=== PATIENT | male | born 1980 | race Caucasian/White ===

== ENCOUNTER 2017-05-15 10:14 | Emergency (ER) | payer OTHER ==
[2017-05-15] MEDS ORDERED: Sodium Chloride 0.9% 1000 ML 1,000 ML IV STA (10:41)
[2017-05-15] MEDS ORDERED: Phenergan 25 MG INJ IV ONE (10:41)
[2017-05-15] MEDS ORDERED: Hydromorphone 1 mg/ml Ampule IV ONE (10:41)
--- NOTE | 2017-05-15 10:41 | ERPHSYRPT ---
- History of Present Illness Time Seen by Provider: 05/15/17 10:37 Historian: patient Exam Limitations: no limitations Patient Subjective Stated Complaint: PT REPORTS CECELIA 3 HRS AGO HE BEGAN HAVING BILATERAL LOW BACK PAIN RADIAITNG AROUND BOTH FLANKS-STATES HE HAS A HX OF KIDNEY STONES ET IT FEELS LIKE THAT-STATES HE IS URINATING BLOOD BUT THAT IS NORMAL FOR HIM-DENIES FEVER Triage Nursing Assessment: PT PINK WARM ET [id number] NONLABORED-ABD NONTENDER TO PALP Physician History: The patient is a 37-year-old male with a history of kidney stones complaining of bilateral flank pain with radiation around to the abdomen that began about 3 hours ago. Pain on his right side is worse than on the left. He says this is similar to the past episodes of kidney stones. He has polycystic kidney disease as well. He still has his appendix and gallbladder. Timing/Duration: hour(s) (3) Activities at Onset: none Quality: sharpness Abdominal Pain Onset Location: flank Pain Radiation: groin Severity of Pain-Max: severe Severity of Pain-Current: severe Modifying Factors: Improves With: nothing Associated Symptoms: denies symptoms Previous symptoms: same symptoms as today Allergies/Adverse Reactions: Penicillins Allergy (Severe, Verified 05/15/17 10:23) Rash diphenhydramine HCl [From Benadryl] Allergy (Verified 05/15/17 10:23) ketorolac tromethamine [From Toradol] Allergy (Verified 05/15/17 10:23) Home Medications: No Home Meds 1 ea UD 05/15/17 [History] Hx Tetanus, Diphtheria Vaccination/Date Given: Yes Hx Influenza Vaccination/Date Given: Yes Hx Pneumococcal Vaccination/Date Given: No Immunizations Up to Date: Yes - Review of Systems Constitutional: No Fever, No Chills Eyes: No Symptoms Ears, Nose, & Throat: No Symptoms Respiratory: No Cough, No Dyspnea Cardiac: No Chest Pain, No Edema, No Syncope Abdominal/Gastrointestinal: Abdominal Pain Genitourinary Symptoms: Flank Pain Musculoskeletal: No Back Pain, No Neck Pain Skin: No Rash Neurological: No Dizziness, No Focal Weakness, No Sensory Changes Psychological: No Symptoms Endocrine: No Symptoms Hematologic/Lymphatic: No Symptoms Immunological/Allergic: No Symptoms All Other Systems: Reviewed and Negative - Past Medical History Pertinent Past Medical History: Yes Neurological History: No Pertinent History ENT History: No Pertinent History Cardiac History: No Pertinent History Respiratory History: No Pertinent History Endocrine Medical History: No Pertinent History Musculoskeletal History: No Pertinent History GI Medical History: No Pertinent History, Other History: Other Psycho-Social History: No Pertinent History Male Reproductive Disorders: No Pertinent History Other Medical History: pckd - Past Surgical History Past Surgical History: No Neuro Surgical History: No Pertinent History Cardiac: No Pertinent History Respiratory: No Pertinent History Gastrointestinal: No Pertinent History Genitourinary: No Pertinent History Musculoskeletal: No Pertinent History Male Surgical History: No Pertinent History - Social History Smoking Status: Current every day smoker How long have you smoked: 16 Exposure to second hand smoke: No Drug Use: none Patient Lives Alone: No Significant Family History: no pertinent family hx - Nursing Vital Signs Nursing Vital Signs: Initial Vital Signs Temperature 97.9 F Temperature Source Oral Pulse Rate 90 Respiratory Rate 16 Blood Pressure [] 143/89 Pain Intensity 6 - Physical Exam General Appearance: moderate distress Eye Exam: PERRL/EOMI, eyes nml inspection Ears, Nose, Throat Exam: normal ENT inspection, pharynx normal, moist mucous membranes Neck Exam: normal inspection, non-tender, supple, full range of motion Respiratory Exam: normal breath sounds, lungs clear, No respiratory distress Cardiovascular Exam: regular rate/rhythm, normal heart sounds Gastrointestinal/Abdomen Exam: tenderness Rectal Exam: not done Back Exam: CVA tenderness Extremity Exam: normal inspection, normal range of motion, pelvis stable Neurologic Exam: alert, oriented x 3, cooperative, normal mood/affect, nml cerebellar function, sensation nml, No motor deficits Skin Exam: normal color, warm, dry SpO2 Interpretation: normal SpO2: 97 Oxygen Delivery: Room Air - CT Exams Abdomen/Pelvis CT Interpretation: Tele-radiologist Report (again bilateral polycystic kidney disease, no renal calculus or evidence for obstructive uropathy. No new or acute abnormalities. Per Dr Zarate.) Ordered Tests: Active Orders 24 hr Category Date Time Status IV Insertion STAT Care 05/15/17 10:41 Active ABDOMEN AND PELVIS W/0 CONTRAS [CT] Stat Exams 05/15/17 10:41 Completed CBC W DIFF Stat Lab 05/15/17 10:54 Completed CMP Stat Lab 05/15/17 10:54 Completed LIPASE Stat Lab 05/15/17 10:54 Completed Lactic Acid Stat Lab 05/15/17 10:55 Completed UA W/RFX UR CULTURE Stat Lab 05/15/17 11:15 Completed Urine Triage Profile Stat Lab 05/15/17 10:41 Completed Medication Summary Discontinued Medications Generic Name Dose Route Start Last Admin Trade Name Teagan PRDiaz Reason Stop Dose Admin Hydromorphone HCl 2 mg 05/15/17 10:41 05/15/17 11:12 Hydromorphone 1 Mg/Ml Ampule IV 05/15/17 10:42 2 mg STAT ONE Administration Hydromorphone HCl Confirm 05/15/17 11:04 Hydromorphone 1 Mg/Ml Ampule Administered 05/15/17 11:05 Dose 2 mg .ROUTE .STK-MED ONE Sodium Chloride 1,000 mls @ 999 mls/hr 05/15/17 10:41 05/15/17 11:11 Sodium Chloride 0.9% 1000 Ml IV 05/15/17 11:41 999 mls/hr .Q1H1M STA Administration Sodium Chloride Confirm 05/15/17 11:04 Sodium Chloride 0.9% 1000 Ml Administered 05/15/17 11:05 Dose 1,000 mls @ ud .ROUTE .STK-MED ONE Promethazine HCl 25 mg 05/15/17 10:41 05/15/17 11:12 Phenergan 25 Mg Inj IV 05/15/17 10:42 25 mg STAT ONE Administration Promethazine HCl Confirm 05/15/17 11:04 Phenergan 25 Mg Inj Administered 05/15/17 11:05 Dose 25 mg .ROUTE .STK-MED ONE Tamsulosin HCl 0.4 mg 05/15/17 10:42 05/15/17 11:12 Flomax 0.4 Mg PO 05/15/17 10:43 0.4 mg HS STA Administration Tamsulosin HCl Confirm 05/15/17 11:04 Flomax 0.4 Mg Administered 05/15/17 11:05 Dose 0.4 mg .ROUTE .STK-MED ONE Lab/Rad Data: Laboratory Result Diagrams 05/15/17 10:54 05/15/17 10:54 Laboratory Results 05/15/17 05/15/17 05/15/17 Range/Units 11:15 10:55 10:54 WBC (4.0-10.5) K/mm3 RBC (4.1-5.6) M/mm3 Hgb (12.5-18.0) gm/dl Hct (42-50) % MCV (78-100) fl MCH (26-32) pg MCHC (32-36) g/dl RDW (11.5-14.0) % Plt Count (150-450) K/mm3 MPV (6-9.5) fl Gran % (36.0-66.0) % Lymphocytes % (24.0-44.0) % Monocytes % (0.0-12.0) % Eosinophils % (0.00-5.0) % Basophils % (0.0-0.4) % Basophils # (0-0.4) Sodium 141 (136-145) mEq/L Potassium 3.9 (3.5-5.1) mEq/L Chloride 106 (98-107) mEq/L Carbon Dioxide 23.7 (21-32) mEq/L Anion Gap 15.0 (5-15) MEQ/L BUN 17 (9-20) mg/dL Creatinine 1.35 H (0.55-1.30) mg/dl Estimated GFR > 60 ML/MIN Glucose 96 (70-110) MG/DL Lactic Acid 0.7 (0.4-2.0) Calcium 9.4 (8.5-10.1) mg/dL Total Bilirubin 0.60 (0.2-1.0) mg/dL AST 31 (15-37) U/L ALT 33 (12-78) U/L Alkaline Phosphatase 52 (46-116) U/L Serum Total Protein 7.7 (6.4-8.2) gm/dL Albumin 4.3 (3.4-5.0) g/dL Lipase 203 (73-393) U/L Ur Collection Type VOID Urine Color YELLOW (YELLOW) Urine Appearance CLEAR (CLEAR) Urine pH 5.0 (5-6) Ur Specific [place] 1.010 (1.005-1.025) Urine Protein NEGATIVE (Negative) Urine Ketones NEGATIVE (NEGATIVE) Urine Blood NEGATIVE (0-5) Varun/ul Urine Nitrite NEGATIVE (NEGATIVE) Urine Bilirubin NEGATIVE (NEGATIVE) Urine Urobilinogen NORMAL (0-1) mg/dL Ur Leukocyte Esterase NEGATIVE (NEGATIVE) Urine Glucose NEGATIVE (NEGATIVE) mg/dL Urine Opiates Level (NEGATIVE) Ur Methadone (NEGATIVE) Urine Barbiturates (NEGATIVE) Ur Phencyclidine (PCP) (NEGATIVE) Urine Amphetamine (NEGATIVE) U Benzodiazepine Level (NEGATIVE) Urine Cocaine (NEGATIVE) Urine Marijuana (THC) (NEGATIVE) Specimen Received 05/15/17 115 05/15/17 05/15/17 Range/Units 10:54 10:41 WBC 6.6 (4.0-10.5) K/mm3 RBC 5.26 (4.1-5.6) M/mm3 Hgb 16.3 (12.5-18.0) gm/dl Hct 48.0 (42-50) % MCV 91.3 (78-100) fl MCH 31.0 (26-32) pg MCHC 34.0 (32-36) g/dl RDW 13.5 (11.5-14.0) % Plt Count 223 (150-450) K/mm3 MPV 9.7 H (6-9.5) fl Gran % 47.6 (36.0-66.0) % Lymphocytes % 40.9 (24.0-44.0) % Monocytes % 8.6 (0.0-12.0) % Eosinophils % 2.3 (0.00-5.0) % Basophils % 0.6 (0.0-0.4) % Basophils # 0.04 (0-0.4) Sodium (136-145) mEq/L Potassium (3.5-5.1) mEq/L Chloride (98-107) mEq/L Carbon Dioxide (21-32) mEq/L Anion Gap (5-15) MEQ/L BUN (9-20) mg/dL Creatinine (0.55-1.30) mg/dl Estimated GFR ML/MIN Glucose (70-110) MG/DL Lactic Acid (0.4-2.0) Calcium (8.5-10.1) mg/dL Total Bilirubin (0.2-1.0) mg/dL AST (15-37) U/L ALT (12-78) U/L Alkaline Phosphatase (46-116) U/L Serum Total Protein (6.4-8.2) gm/dL Albumin (3.4-5.0) g/dL Lipase (73-393) U/L Ur Collection Type Urine Color (YELLOW) Urine Appearance (CLEAR) Urine pH (5-6) Ur Specific [place] (1.005-1.025) Urine Protein (Negative) Urine Ketones (NEGATIVE) Urine Blood (0-5) Varun/ul Urine Nitrite (NEGATIVE) Urine Bilirubin (NEGATIVE) Urine Urobilinogen (0-1) mg/dL Ur Leukocyte Esterase (NEGATIVE) Urine Glucose (NEGATIVE) mg/dL Urine Opiates Level NEG. (NEGATIVE) Ur Methadone NEG. (NEGATIVE) Urine Barbiturates NEG. (NEGATIVE) Ur Phencyclidine (PCP) NEG. (NEGATIVE) Urine Amphetamine NEG. (NEGATIVE) U Benzodiazepine Level NEG. (NEGATIVE) Urine Cocaine NEG. (NEGATIVE) Urine Marijuana (THC) POS. (NEGATIVE) Specimen Received - Progress Progress: improved, pain not gone completely Counseled pt/family regarding: lab results, diagnosis, need for follow-up, rad results - Departure Time of Disposition: 11:58 Departure Disposition: Home Clinical Impression: Abdominal pain Condition: Stable Critical Care Time: No Referrals: BRENDA WHITING MD [Primary Care Provider] - Additional Instructions: You have abdominal pain from an unknown cause. You were treated with Dilaudid 1 mg and Phenergan 25 mg IV in the ER. Take tylenol as needed. You need to follow-up with your primary care doctor, Dr. Yoandy Whiting. You have been given the phone number for Dr. Whiting and his office hours.
[2017-05-15] MEDS ORDERED: Flomax 0.4 MG PO STA (10:42)
[2017-05-15 11:00] LABS: BASOPHIL % 0.6 % (0.0-0.4); Eosinophil % 2.3 % (0.00-5.0); Granulocytes % 47.6 % (36.0-66.0); Lymphocytes % 40.9 % (24.0-44.0); Mean Cell Volume 91.3 fl (78-100); Mean Platelet Volume 9.7 fl (6-9.5); Monocytes % 8.6 % (0.0-12.0); Platelet Count 223 K/mm3 (150-450); Red Blood Count 5.26 M/mm3 (4.1-5.6); Red Cell Distribution Width 13.5 % (11.5-14.0); White Blood Count 6.6 K/mm3 (4.0-10.5)
[2017-05-15] MEDS ORDERED: Flomax 0.4 MG ONE (11:04)
[2017-05-15] MEDS ORDERED: Hydromorphone 1 mg/ml Ampule ONE (11:04)
[2017-05-15] MEDS ORDERED: Sodium Chloride 0.9% 1000 ML 1,000 ML ONE (11:04)
[2017-05-15] MEDS ORDERED: Phenergan 25 MG INJ ONE (11:04)
[2017-05-15 11:25] LABS: ADD URINE CULTURE? NO (NO); Bilirubin NEGATIVE (NEGATIVE); Blood NEGATIVE Ery/ul (0-5); COMPLETE URINE MICROSCOPIC? NO; Collection Type VOID; Glucose NEGATIVE (NEGATIVE); Leukocyte Esterase NEGATIVE (NEGATIVE)
[2017-05-15 11:27] LABS: ALBUMIN 4.3 g/dL (3.4-5.0); ALKALINE PHOSPHATASE 52 U/L (46-116); BLOOD UREA NITROGEN 17 mg/dL (9-20); CHLORIDE 106 mEq/L (98-107); Carbon Dioxide 23.7 mEq/L (21-32); Glucose 96 MG/DL (70-110); LIPASE 203 U/L (73-393); Potassium 3.9 mEq/L (3.5-5.1); SGOT/AST 31 U/L (15-37); SGPT/ALT 33 U/L (12-78); SODIUM 141 mEq/L (136-145); Total Protein 7.7 gm/dL (6.4-8.2)
--- NOTE | 2017-05-15 11:43 | XRAY ---
Indication: Bilateral flank pain. History of cystic kidneys. Multiple contiguous axial images obtained through the abdomen and pelvis without contrast using renal stone protocol. Comparison: July 04, 2014. Lung bases clear. Heart is not enlarged. Again there are numerous bilateral renal cysts again a few demonstrating faint peripheral calcifications. No hydronephrosis, hydroureter, or perinephric fluid. Noncontrasted stomach and bowel loops appear nonobstructed. Normal appendix. Remaining liver, gallbladder, pancreas, spleen, adrenal glands, bladder, and aorta appear unremarkable for noncontrast exam. Osseous structures intact. Impression: Again bilateral polycystic kidney disease with minimal faint peripheral calcifications. No renal calculus or evidence for obstructive uropathy. No new or acute intra-abdominal/pelvic abnormalities on this noncontrast exam. CT DI 23.63
[2017-05-15 12:40] VITALS: BP 124/54; PULSE 75; O2SAT 95
== END 2017-05-15 12:39 | disposition home or self-care (01) ==
LOC: ED 10:14
DX: R07.9 Chest pain, unspecified (principal); M54.5 Low back pain; Q61.3 Polycystic kidney, unspecified
CPT/HCPCS: 36000; 36415; 74176; 80053; 80307; 81002; 83605; 83690; 85025; 96360; 99284; J1170; J2550; A9270-GY

== ENCOUNTER 2017-06-06 16:17 | Emergency (ER) | payer OTHER ==
[2017-06-06 16:30] VITALS: PULSE 90
--- NOTE | 2017-06-06 16:38 | ERPHSYRPT ---
- History of Present Illness Time Seen by Provider: 06/06/17 16:22 Source: patient, family Physician History: CC: toe pain Hx: 37 y/o non-diabetic healthy man with left great toe pain. Trimmed nails and thinks ingrown nail on left great toe. Worse pain. Mild drng. No fever. Pain up the foot. Mild redness. Tetanus vaccine up to date. Severity of Pain-Max: moderate Severity of Pain-Current: moderate Allergies/Adverse Reactions: Penicillins Allergy (Severe, Verified 05/15/17 10:23) Rash diphenhydramine HCl [From Benadryl] Allergy (Verified 05/15/17 10:23) ketorolac tromethamine [From Toradol] Allergy (Verified 05/15/17 10:23) Home Medications: No Home Meds 1 ea UD 05/15/17 [History] Hx Tetanus, Diphtheria Vaccination/Date Given: Yes Hx Influenza Vaccination/Date Given: Yes Hx Pneumococcal Vaccination/Date Given: No - Review of Systems Constitutional: No Fever, No Chills Musculoskeletal: No Back Pain, No Neck Pain Skin: Cellulitis Neurological: No Focal Weakness, No Parasthesia - Past Medical History Pertinent Past Medical History: Yes Neurological History: No Pertinent History ENT History: No Pertinent History Cardiac History: No Pertinent History Respiratory History: No Pertinent History Endocrine Medical History: No Pertinent History Musculoskeletal History: No Pertinent History GI Medical History: No Pertinent History, Other History: Other Psycho-Social History: No Pertinent History Male Reproductive Disorders: No Pertinent History Other Medical History: Polycystic kidney disease - Past Surgical History Past Surgical History: No Neuro Surgical History: No Pertinent History Cardiac: No Pertinent History Respiratory: No Pertinent History Gastrointestinal: No Pertinent History Genitourinary: No Pertinent History Musculoskeletal: No Pertinent History Male Surgical History: No Pertinent History - Social History Smoking Status: Current every day smoker How long have you smoked: 16 Exposure to second hand smoke: No Drug Use: none Patient Lives Alone: No Significant Family History: no pertinent family hx - Physical Exam General Appearance: alert Eyes, Ears, Nose, Throat Exam: moist mucous membranes Neck Exam: supple Cardiovascular/Respiratory Exam: regular rate/rhythm Neuro/Tendon Exam: normal sensation, normal motor functions Mental Status Exam: alert, oriented x 3, cooperative Skin Exam: warm, dry Comments: Left great toe has some distal tenderness on lateral side. The nail is trimmed short. No fluctuance. Some redness and tenderness. - Course Nursing assessment & vital signs reviewed: Yes - Progress Progress Note: 06/06/17 16:31 Advised soaks and abtx. Advised follow up in case needs surgical procedure. 06/06/17 16:39 INSPECT shows a few opioid Rx in past 2 months.Pt has polycystic kidneys and can not safely take NSAIDS. Discussed opiods and risks of abuse. He states understands . Follow up advised. Counseled pt/family regarding: diagnosis, need for follow-up - Departure Time of Disposition: 16:32 Departure Disposition: Home Clinical Impression: Polycystic kidney disease, adult type Condition: Stable Critical Care Time: No Referrals: BRENDA WHITING MD [Primary Care Provider] - Instructions: Ingrown Toenail Additional Instructions: Rx doxycycline. Rx norco Follow up with Dr Whiting or foot doctor. Epson salt soaks three times a day. Prescriptions: Hydrocodone Bit/Acetaminophen [Armstrong 5-325 Tablet] 1 each PO Q6H PRN PRN #14 tablet PRN Reason: Pain Doxycycline Hyclate [Vibramycin] 1 cap PO BID #20 capsule
[2017-06-06 16:47] VITALS: BP 140/90; O2SAT 98
== END 2017-06-06 16:48 | disposition home or self-care (01) ==
LOC: ED 16:17
DX: Q61.3 Polycystic kidney, unspecified (principal); M79.675 Pain in left toe(s)
CPT/HCPCS: 99281; 99283

== ENCOUNTER 2017-08-02 13:26 | Emergency (ER) | payer OTHER ==
[2017-08-02 13:47] VITALS: O2SAT 95
[2017-08-02] MEDS ORDERED: Zofran 4 MG/2 ML VIAL IV ONE (14:10)
[2017-08-02] MEDS ORDERED: Sodium Chloride 0.9% 1000 ML 1,000 ML IV STA (14:10)
[2017-08-02] MEDS ORDERED: SUBLIMAZE 100 MCG/2 ML IV ONE (14:10)
--- NOTE | 2017-08-02 14:13 | ERPHSYRPT ---
- History of Present Illness Time Seen by Provider: 08/02/17 14:11 Historian: patient Exam Limitations: no limitations Patient Subjective Stated Complaint: PT states "I was out on the boat fishing when all of a sudden I had severe left lower back pain into my abdomen and into my groin." Triage Nursing Assessment: PT alert and oriented X 3, skin pwd. pt ambulates holding his side, able to speak in full sentences. pt unable to sit still. Physician History: PT states "I was out on the boat fishing when all of a sudden I had severe left lower back pain into my abdomen and into my groin.". patient has multiple ER visits for recurrent renal stones and has polycystic kidney dis. Timing/Duration: today Allergies/Adverse Reactions: Penicillins Allergy (Severe, Verified 06/06/17 16:30) Rash diphenhydramine HCl [From Benadryl] Allergy (Verified 06/06/17 16:30) ketorolac tromethamine [From Toradol] Allergy (Verified 06/06/17 16:30) Home Medications: No Home Meds [No Home Meds] 1 [facility] 05/15/17 [History] Hx Tetanus, Diphtheria Vaccination/Date Given: Yes Hx Influenza Vaccination/Date Given: Yes Hx Pneumococcal Vaccination/Date Given: No Immunizations Up to Date: Yes - Review of Systems Constitutional: No Fever, No Chills Eyes: No Symptoms Ears, Nose, & Throat: No Symptoms Respiratory: No Cough, No Dyspnea Cardiac: No Chest Pain, No Edema, No Syncope Abdominal/Gastrointestinal: Abdominal Pain, No Nausea, No Vomiting, No Diarrhea Genitourinary Symptoms: Flank Pain, No Dysuria Musculoskeletal: No Back Pain, No Neck Pain Skin: No Rash Neurological: No Dizziness, No Focal Weakness, No Sensory Changes Psychological: No Symptoms Endocrine: No Symptoms All Other Systems: Reviewed and Negative - Past Medical History Pertinent Past Medical History: Yes Neurological History: No Pertinent History ENT History: No Pertinent History Cardiac History: No Pertinent History Respiratory History: No Pertinent History Endocrine Medical History: No Pertinent History Musculoskeletal History: No Pertinent History GI Medical History: No Pertinent History, Other History: Other Psycho-Social History: No Pertinent History Male Reproductive Disorders: No Pertinent History Other Medical History: Polycystic kidney disease - Past Surgical History Past Surgical History: No Neuro Surgical History: No Pertinent History Cardiac: No Pertinent History Respiratory: No Pertinent History Gastrointestinal: No Pertinent History Genitourinary: No Pertinent History Musculoskeletal: No Pertinent History Male Surgical History: No Pertinent History - Social History Smoking Status: Current every day smoker How long have you smoked: 15 years Exposure to second hand smoke: Yes Drug Use: none Patient Lives Alone: No Significant Family History: no pertinent family hx - Nursing Vital Signs Nursing Vital Signs: Initial Vital Signs Temperature 98.3 F 08/02/17 13:39 Pulse Rate 105 H 08/02/17 13:39 Respiratory Rate 20 08/02/17 13:39 Blood Pressure 145/98 08/02/17 13:39 O2 Sat by Pulse Oximetry 95 08/02/17 13:39 Pain Scale Pain Intensity 8 - Physical Exam General Appearance: no apparent distress, alert Eye Exam: PERRL/EOMI, eyes nml inspection Ears, Nose, Throat Exam: normal ENT inspection, pharynx normal, moist mucous membranes Neck Exam: normal inspection, non-tender, supple, full range of motion Respiratory Exam: normal breath sounds, lungs clear, No respiratory distress Cardiovascular Exam: regular rate/rhythm, normal heart sounds Gastrointestinal/Abdomen Exam: soft, tenderness (left flank), No mass Back Exam: normal inspection, normal range of motion, No CVA tenderness, No vertebral tenderness Extremity Exam: normal inspection, normal range of motion, pelvis stable Neurologic Exam: alert, oriented x 3, cooperative, normal mood/affect, nml cerebellar function, sensation nml, No motor deficits Skin Exam: normal color, warm, dry SpO2: 95 Oxygen Delivery: Room Air - Course Nursing assessment & vital signs reviewed: Yes - Radiology Ultrasound Exam Renal Ultrasound: Other (no stone, polycystic kidneys) Ordered Tests: Active Orders 24 hr Category Date Time Status PELVIC [US] Stat Exams 08/02/17 14:13 Ordered UPPER ABDOMEN [US] Stat Exams 08/02/17 14:13 Ordered BMP Stat Lab 08/02/17 14:10 Completed CBC W DIFF Stat Lab 08/02/17 14:10 Completed CULTURE,URINE Stat Lab 08/02/17 14:29 Received UA W/ MICROSCOPIC Stat Lab 08/02/17 14:29 Completed Urine Triage Profile Stat Lab 08/02/17 14:29 Completed Medication Summary Generic Name Dose Route Start Last Admin Trade Name Freq PRN Reason Stop Dose Admin Sodium Chloride 1,000 mls @ 999 mls/hr 08/02/17 14:10 08/02/17 14:17 Sodium Chloride 0.9% 1000 Ml IV 08/02/17 15:10 999 mls/hr .Q1H1M STA Administration Discontinued Medications Generic Name Dose Route Start Last Admin Trade Name Teagan PRN Reason Stop Dose Admin Fentanyl Citrate 50 mcg 08/02/17 14:10 08/02/17 14:17 Sublimaze 100 Mcg/2 Ml IV 08/02/17 14:11 50 mcg STAT ONE Administration Fentanyl Citrate Confirm 08/02/17 14:16 Sublimaze 100 Mcg/2 Ml Administered 08/02/17 14:17 Dose 100 mcg .ROUTE .STK-MED ONE Sodium Chloride Confirm 08/02/17 14:16 Sodium Chloride 0.9% 1000 Ml Administered 08/02/17 14:17 Dose 1,000 mls @ ud .ROUTE .STK-MED ONE Ondansetron HCl 4 mg 08/02/17 14:10 08/02/17 14:18 Zofran 4 Mg/2 Ml Vial IV 08/02/17 14:11 4 mg STAT ONE Administration Ondansetron HCl Confirm 08/02/17 14:15 Zofran 4 Mg/2 Ml Vial Administered 08/02/17 14:16 Dose 4 mg .ROUTE .STK-MED ONE Lab/Rad Data: Laboratory Result Diagrams 08/02/17 14:10 08/02/17 14:10 Laboratory Results 08/02/17 08/02/17 08/02/17 Range/Units 14:29 14:29 14:10 WBC (4.0-10.5) K/mm3 RBC (4.1-5.6) M/mm3 Hgb (12.5-18.0) gm/dl Hct (42-50) % MCV (78-100) fl MCH (26-32) pg MCHC (32-36) g/dl RDW (11.5-14.0) % Plt Count (150-450) K/mm3 MPV (6-9.5) fl Gran % (36.0-66.0) % Lymphocytes % (24.0-44.0) % Monocytes % (0.0-12.0) % Eosinophils % (0.00-5.0) % Basophils % (0.0-0.4) % Basophils # (0-0.4) Sodium 143 (136-145) mEq/L Potassium 3.8 (3.5-5.1) mEq/L Chloride 108 H (98-107) mEq/L Carbon Dioxide 23.6 (21-32) mEq/L Anion Gap 15.1 H (5-15) MEQ/L BUN 13 (9-20) mg/dL Creatinine 1.29 (0.55-1.30) mg/dl Estimated GFR > 60 ML/MIN Glucose 112 H (70-110) MG/DL Calcium 9.1 (8.5-10.1) mg/dL Ur Collection Type VOID Urine Color YELLOW (YELLOW) Urine Appearance CLEAR (CLEAR) Urine pH 5.0 (5-6) Ur Specific [place] 1.015 (1.005-1.025) Urine Protein TRACE (Negative) Urine Ketones NEGATIVE (NEGATIVE) Urine Blood 5-10 (0-5) Varun/ul Urine Nitrite NEGATIVE (NEGATIVE) Urine Bilirubin NEGATIVE (NEGATIVE) Urine Urobilinogen NORMAL (0-1) mg/dL Ur Leukocyte Esterase NEGATIVE (NEGATIVE) Urine Microscopic RBC 0-2 (0-2) /HPF Urine Microscopic WBC 2-5 (0-5) /HPF Urine Bacteria FEW (NEGATIVE) /HPF Urine Glucose NEGATIVE (NEGATIVE) mg/dL Urine Opiates Level NEG. (NEGATIVE) Ur Methadone NEG. (NEGATIVE) Urine Barbiturates NEG. (NEGATIVE) Ur Phencyclidine (PCP) NEG. (NEGATIVE) Urine Amphetamine NEG. (NEGATIVE) U Benzodiazepine Level NEG. (NEGATIVE) Urine Cocaine NEG. (NEGATIVE) Urine Marijuana (THC) NEG. (NEGATIVE) Specimen Received 08/02/17 1430 08/02/17 Range/Units 14:10 WBC 6.6 (4.0-10.5) K/mm3 RBC 5.09 (4.1-5.6) M/mm3 Hgb 16.0 (12.5-18.0) gm/dl Hct 46.5 (42-50) % MCV 91.4 (78-100) fl MCH 31.4 (26-32) pg MCHC 34.4 (32-36) g/dl RDW 12.7 (11.5-14.0) % Plt Count 233 (150-450) K/mm3 MPV 9.5 (6-9.5) fl Gran % 47.4 (36.0-66.0) % Lymphocytes % 39.3 (24.0-44.0) % Monocytes % 10.1 (0.0-12.0) % Eosinophils % 2.7 (0.00-5.0) % Basophils % 0.5 (0.0-0.4) % Basophils # 0.03 (0-0.4) Sodium (136-145) mEq/L Potassium (3.5-5.1) mEq/L Chloride (98-107) mEq/L Carbon Dioxide (21-32) mEq/L Anion Gap (5-15) MEQ/L BUN (9-20) mg/dL Creatinine (0.55-1.30) mg/dl Estimated GFR ML/MIN Glucose (70-110) MG/DL Calcium (8.5-10.1) mg/dL Ur Collection Type Urine Color (YELLOW) Urine Appearance (CLEAR) Urine pH (5-6) Ur Specific [place] (1.005-1.025) Urine Protein (Negative) Urine Ketones (NEGATIVE) Urine Blood (0-5) Varun/ul Urine Nitrite (NEGATIVE) Urine Bilirubin (NEGATIVE) Urine Urobilinogen (0-1) mg/dL Ur Leukocyte Esterase (NEGATIVE) Urine Microscopic RBC (0-2) /HPF Urine Microscopic WBC (0-5) /HPF Urine Bacteria (NEGATIVE) /HPF Urine Glucose (NEGATIVE) mg/dL Urine Opiates Level (NEGATIVE) Ur Methadone (NEGATIVE) Urine Barbiturates (NEGATIVE) Ur Phencyclidine (PCP) (NEGATIVE) Urine Amphetamine (NEGATIVE) U Benzodiazepine Level (NEGATIVE) Urine Cocaine (NEGATIVE) Urine Marijuana (THC) (NEGATIVE) Specimen Received - Progress Progress: improved, pain not gone completely Counseled pt/family regarding: lab results, diagnosis, need for follow-up, rad results - Departure Time of Disposition: 14:56 Departure Disposition: Home Clinical Impression: Polycystic kidney disease, adult type, Renal colic on left side Condition: Stable Critical Care Time: Yes Critical Care Time(excluding separately billable procedures): 30-74 minutes Referrals: BRENDA WHITING MD [Primary Care Provider] - Instructions: Kidney Stones, Abdominal Pain-Adult Prescriptions: Ciprofloxacin [Cipro 500 MG] 500 mg PO BIDAC #10 tablet Cyclobenzaprine HCl 10 mg [Flexeril 10 MG] 10 mg PO TID #30 tablet
[2017-08-02] MEDS ORDERED: Zofran 4 MG/2 ML VIAL ONE (14:15)
[2017-08-02] MEDS ORDERED: Sodium Chloride 0.9% 1000 ML 1,000 ML ONE (14:16)
[2017-08-02] MEDS ORDERED: SUBLIMAZE 100 MCG/2 ML ONE (14:16)
[2017-08-02 14:21] LABS: BASOPHIL % 0.5 % (0.0-0.4); Eosinophil % 2.7 % (0.00-5.0); Granulocytes % 47.4 % (36.0-66.0); Lymphocytes % 39.3 % (24.0-44.0); Mean Cell Volume 91.4 fl (78-100); Mean Corpuscular Hemoglobin 31.4 pg (26-32); Mean Platelet Volume 9.5 fl (6-9.5); Monocytes % 10.1 % (0.0-12.0); Platelet Count 233 K/mm3 (150-450); Red Blood Count 5.09 M/mm3 (4.1-5.6); Red Cell Distribution Width 12.7 % (11.5-14.0); White Blood Count 6.6 K/mm3 (4.0-10.5)
[2017-08-02 14:26] VITALS: BP 134/88; PULSE 90
[2017-08-02 14:35] LABS: ANION GAP 15.1 MEQ/L (5-15); BLOOD UREA NITROGEN 13 mg/dL (9-20); CHLORIDE 108 mEq/L (98-107); Carbon Dioxide 23.6 mEq/L (21-32); Glucose 112 MG/DL (70-110); Potassium 3.8 mEq/L (3.5-5.1); SODIUM 143 mEq/L (136-145)
[2017-08-02 14:51] LABS: Bacteria FEW /HPF (NEGATIVE); Bilirubin NEGATIVE (NEGATIVE); COMPLETE URINE MICROSCOPIC? YES; Collection Type VOID; Glucose NEGATIVE (NEGATIVE); Leukocyte Esterase NEGATIVE (NEGATIVE)
[2017-08-02 14:52] LABS: ADD URINE CULTURE? YES (NO)
--- NOTE | 2017-08-02 20:50 | XRAY ---
Indication: Left flank pain. Polycystic kidney disease. Two-dimensional renal sonogram performed. Comparison: None Right kidney measures 22.8 x 14.0 x 11.0 cm and the left measures 21.2 x 13.3 x 19.1 cm. Numerous bilateral renal cysts consistent with known polycystic kidney disease. No solid renal mass, hydronephrosis, or perinephric fluid. Urinary bladder is empty. Impression: Bilateral polycystic kidney disease. Negative renal mass or hydronephrosis. Comment: Preliminary report was given.
== END 2017-08-02 15:10 | disposition home or self-care (01) ==
LOC: ED 13:26
DX: Q61.3 Polycystic kidney, unspecified (principal); N23 Unspecified renal colic; M54.5 Low back pain
CPT/HCPCS: 36000; 36415; 76770; 80048; 80307; 81000; 85025; 87086; 96360; 96374; 96375; 99284; J2405; J3010

== ENCOUNTER 2017-10-13 17:41 | Emergency (ER) | payer OTHER ==
[2017-10-13] MEDS ORDERED: Zofran 4 MG/2 ML VIAL IV ONE (17:53)
[2017-10-13] MEDS ORDERED: Sodium Chloride 0.9% 1000 ML 1,000 ML IV STA (17:53)
[2017-10-13] MEDS ORDERED: Hydromorphone 1 mg/ml Ampule IV ONE (17:53)
--- NOTE | 2017-10-13 17:57 | ERPHSYRPT ---
- History of Present Illness Historian: patient Exam Limitations: no limitations Hx Tetanus, Diphtheria Vaccination/Date Given: Yes Hx Influenza Vaccination/Date Given: Yes Hx Pneumococcal Vaccination/Date Given: No <GINA CONTRERAS - Last Filed: 10/13/17 19:10> <BRADEN LEIVA - Last Filed: 10/13/17 19:32> - History of Present Illness Time Seen by Provider: 10/13/17 17:55 Physician History: mod sudden sharp right flank pain for 2hrs constant nonrad, no injury, no rash, no emesis, hx renal stones (GINA CONTRERAS) Allergies/Adverse Reactions: Penicillins Allergy (Severe, Verified 10/13/17 17:55) Rash diphenhydramine HCl [From Benadryl] Allergy (Verified 10/13/17 17:55) ketorolac tromethamine [From Toradol] Allergy (Verified 10/13/17 17:55) Home Medications: No Reportable Medications [No Reported Medications] 10/13/17 [History] - Review of Systems Constitutional: No Fever Eyes: No Symptoms Ears, Nose, & Throat: No Symptoms Respiratory: No Symptoms Cardiac: No Symptoms Abdominal/Gastrointestinal: Abdominal Pain, Nausea, No Vomiting Genitourinary Symptoms: No Hematuria Musculoskeletal: No Neck Pain Skin: No Symptoms Neurological: No Symptoms Psychological: No Symptoms <GINA CONTRERAS - Last Filed: 10/13/17 19:10> - Past Medical History Pertinent Past Medical History: Yes Neurological History: No Pertinent History ENT History: No Pertinent History Cardiac History: No Pertinent History Respiratory History: No Pertinent History Endocrine Medical History: No Pertinent History Musculoskeletal History: No Pertinent History GI Medical History: No Pertinent History, Other History: Other Psycho-Social History: No Pertinent History Male Reproductive Disorders: No Pertinent History Other Medical History: Polycystic kidney disease - Past Surgical History Past Surgical History: No Neuro Surgical History: No Pertinent History Cardiac: No Pertinent History Respiratory: No Pertinent History Gastrointestinal: No Pertinent History Genitourinary: No Pertinent History Musculoskeletal: No Pertinent History Male Surgical History: No Pertinent History - Social History Smoking Status: Current every day smoker How long have you smoked: 15 years Exposure to second hand smoke: Yes Drug Use: none Patient Lives Alone: No Significant Family History: no pertinent family hx <GINA CONTRERAS - Last Filed: 10/13/17 19:10> - Physical Exam General Appearance: no apparent distress Eye Exam: eyes nml inspection Ears, Nose, Throat Exam: moist mucous membranes Neck Exam: normal inspection Respiratory Exam: normal breath sounds Cardiovascular Exam: regular rate/rhythm Gastrointestinal/Abdomen Exam: soft, tenderness, No rebound Back Exam: CVA tenderness Extremity Exam: normal inspection Neurologic Exam: alert, oriented x 3, cooperative Skin Exam: normal color, warm, dry <GINA CONTRERAS - Last Filed: 10/13/17 19:10> - Nursing Vital Signs Nursing Vital Signs: Initial Vital Signs Temperature 97.7 F 10/13/17 17:51 Pulse Rate 105 H 10/13/17 17:51 Respiratory Rate 20 10/13/17 17:51 Blood Pressure 128/106 10/13/17 17:51 O2 Sat by Pulse Oximetry 93 L 10/13/17 17:51 Pain Scale Pain Intensity 7 - Course Nursing assessment & vital signs reviewed: Yes - CT Exams Abdomen/Pelvis CT Interpretation: Tele-radiologist Report (No kidney stones. Numerous cysts noted.) <BRADEN LEIVA - Last Filed: 10/13/17 19:32> Ordered Tests: Active Orders 24 hr Category Date Time Status IV Insertion STAT Care 10/13/17 17:53 Active ABDOMEN AND PELVIS W/0 CONTRAS [CT] Stat Exams 10/13/17 17:53 Taken CBC W DIFF Stat Lab 10/13/17 18:12 Completed CMP Stat Lab 10/13/17 18:12 Completed CULTURE,URINE Stat Lab 10/13/17 18:12 Received LIPASE Stat Lab 10/13/17 18:12 Completed UA W/ MICROSCOPIC Stat Lab 10/13/17 18:12 Completed Medication Summary Discontinued Medications Generic Name Dose Route Start Last Admin Trade Name Eduinq PRN Reason Stop Dose Admin Hydromorphone HCl 1 mg 10/13/17 17:53 10/13/17 18:14 Hydromorphone 1 Mg/Ml Ampule IV 10/13/17 17:54 1 mg STAT ONE Administration Hydromorphone HCl Confirm 10/13/17 18:12 Hydromorphone 1 Mg/Ml Ampule Administered 10/13/17 18:13 Dose 1 mg .ROUTE .STK-MED ONE Sodium Chloride 1,000 mls @ 999 mls/hr 10/13/17 17:53 10/13/17 18:14 Sodium Chloride 0.9% 1000 Ml IV 10/13/17 18:53 999 mls/hr .Q1H1M STA Administration Sodium Chloride Confirm 10/13/17 18:12 Sodium Chloride 0.9% 1000 Ml Administered 10/13/17 18:13 Dose 1,000 mls @ ud .ROUTE .STK-MED ONE Ondansetron HCl 4 mg 10/13/17 17:53 10/13/17 18:14 Zofran 4 Mg/2 Ml Vial IV 10/13/17 17:54 4 mg STAT ONE Administration Ondansetron HCl Confirm 10/13/17 18:12 Zofran 4 Mg/2 Ml Vial Administered 10/13/17 18:13 Dose 4 mg .ROUTE .STK-MED ONE Lab/Rad Data: Laboratory Result Diagrams 10/13/17 18:12 10/13/17 18:12 Laboratory Results 10/13/17 10/13/17 10/13/17 Range/Units 18:12 18:12 18:12 WBC 7.4 (4.0-10.5) K/mm3 RBC 4.83 (4.1-5.6) M/mm3 Hgb 14.8 (12.5-18.0) gm/dl Hct 44.3 (42-50) % MCV 91.7 (78-100) fl MCH 30.6 (26-32) pg MCHC 33.4 (32-36) g/dl RDW 12.5 (11.5-14.0) % Plt Count 277 (150-450) K/mm3 MPV 9.2 (6-9.5) fl Gran % 50.8 (36.0-66.0) % Lymphocytes % 38.7 (24.0-44.0) % Monocytes % 7.1 (0.0-12.0) % Eosinophils % 3.0 (0.00-5.0) % Basophils % 0.4 (0.0-0.4) % Basophils # 0.03 (0-0.4) Sodium 140 (136-145) mEq/L Potassium 4.0 (3.5-5.1) mEq/L Chloride 104 (98-107) mEq/L Carbon Dioxide 24.0 (21-32) mEq/L Anion Gap 15.9 H (5-15) MEQ/L BUN 14 (9-20) mg/dL Creatinine 1.35 H (0.55-1.30) mg/dl Estimated GFR > 60 ML/MIN Glucose 94 (70-110) MG/DL Calcium 9.1 (8.5-10.1) mg/dL Total Bilirubin 0.30 (0.2-1.0) mg/dL AST 24 (15-37) U/L ALT 27 (12-78) U/L Alkaline Phosphatase 54 (46-116) U/L Serum Total Protein 7.7 (6.4-8.2) gm/dL Albumin 3.8 (3.4-5.0) g/dL Lipase 148 (73-393) U/L Ur Collection Type VOID Urine Color YELLOW (YELLOW) Urine Appearance CLEAR (CLEAR) Urine pH 6.0 (5-6) Ur Specific [place] 1.015 (1.005-1.025) Urine Protein TRACE (Negative) Urine Ketones NEGATIVE (NEGATIVE) Urine Blood 250 (0-5) Varun/ul Urine Nitrite NEGATIVE (NEGATIVE) Urine Bilirubin NEGATIVE (NEGATIVE) Urine Urobilinogen NORMAL (0-1) mg/dL Ur Leukocyte Esterase NEGATIVE (NEGATIVE) Urine Microscopic RBC 2-5 (0-2) /HPF Urine Microscopic WBC 0-2 (0-5) /HPF Ur Epithelial Cells RARE (FEW) /HPF Urine Bacteria FEW (NEGATIVE) /HPF Urine Culture Reflexed YES (NO) Urine Glucose NEGATIVE (NEGATIVE) mg/dL Specimen Received 10/13/17 1815 - Progress Progress: improved Counseled pt/family regarding: lab results, diagnosis, rad results <BRADEN LEIVA - Last Filed: 10/13/17 19:32> - Progress Progress Note: 10/13/17 18:[address] Leiva at 19:00 10/13/17 19:10 (GINA CONTRERAS) <GINA CONTRERAS - Last Filed: 10/13/17 19:10> - Departure Time of Disposition: 19:30 Departure Disposition: Home Critical Care Time: No <BRADEN LEIVA - Last Filed: 10/13/17 19:32> - Departure Clinical Impression: Low back pain, Low back pain Condition: Stable Referrals: BRENDA WHITING MD [NON-STAFF PHY W/O PRIVILEGES] - Additional Instructions: Motrin 800mg every 8hrs with food for pain. Return for worse back pain, numbness, tingling, weakness or any problems
[2017-10-13] MEDS ORDERED: Hydromorphone 1 mg/ml Ampule ONE (18:12)
[2017-10-13] MEDS ORDERED: Zofran 4 MG/2 ML VIAL ONE (18:12)
[2017-10-13] MEDS ORDERED: Sodium Chloride 0.9% 1000 ML 1,000 ML ONE (18:12)
[2017-10-13 18:19] LABS: BASOPHIL % 0.4 % (0.0-0.4); Granulocytes % 50.8 % (36.0-66.0); Lymphocytes % 38.7 % (24.0-44.0); Mean Cell Volume 91.7 fl (78-100); Mean Corpuscular Hemoglobin 30.6 pg (26-32); Mean Platelet Volume 9.2 fl (6-9.5); Monocytes % 7.1 % (0.0-12.0); Platelet Count 277 K/mm3 (150-450); Red Blood Count 4.83 M/mm3 (4.1-5.6); Red Cell Distribution Width 12.5 % (11.5-14.0); White Blood Count 7.4 K/mm3 (4.0-10.5)
[2017-10-13 18:33] LABS: Collection Type VOID
[2017-10-13 18:34] LABS: ADD URINE CULTURE? YES (NO); Bacteria FEW /HPF (NEGATIVE); Bilirubin NEGATIVE (NEGATIVE); Blood 250 Ery/ul (0-5); COMPLETE URINE MICROSCOPIC? YES; Epithelial Cells RARE /HPF (FEW); Glucose NEGATIVE (NEGATIVE); Leukocyte Esterase NEGATIVE (NEGATIVE); WBC 0-2 /HPF (0-5)
[2017-10-13 18:48] LABS: ALBUMIN 3.8 g/dL (3.4-5.0); ALKALINE PHOSPHATASE 54 U/L (46-116); ANION GAP 15.9 MEQ/L (5-15); BLOOD UREA NITROGEN 14 mg/dL (9-20); CHLORIDE 104 mEq/L (98-107); Glucose 94 MG/DL (70-110); LIPASE 148 U/L (73-393); SGOT/AST 24 U/L (15-37); SGPT/ALT 27 U/L (12-78); SODIUM 140 mEq/L (136-145); Total Protein 7.7 gm/dL (6.4-8.2)
[2017-10-13 19:09] VITALS: PULSE 92; O2SAT 97
[2017-10-13 19:46] VITALS: BP 128/70
--- NOTE | 2017-10-14 08:44 | XRAY ---
Indication: Right lower quadrant pain. History of polycystic kidneys and kidney stones. Multiple contiguous axial images obtained through the abdomen and pelvis without contrast using renal stone protocol. Comparison: May 15, 2017. Lung bases demonstrate minimal bibasilar dependent atelectasis. No infiltrate or effusion. Heart is not enlarged. Again there are numerous bilateral renal cysts again a few demonstrating faint peripheral calcifications. No hydronephrosis, hydroureter, or perinephric fluid. Noncontrasted stomach and bowel loops appear nonobstructed. Normal appendix. Remaining liver, gallbladder, pancreas, spleen, adrenal glands, bladder, and aorta appear unremarkable for noncontrast exam. Osseous structures intact. Impression: 1. Stable bilateral polycystic kidney disease with minimal peripheral calcifications. 2. No renal calculus or evidence for obstructive uropathy. 3. No new or acute intra-abdominal/pelvic abnormalities on this noncontrast exam. Comment: Preliminary interpretation was made by [facility]. No critical discrepancy. CT DI 23.65
== END 2017-10-13 19:48 | disposition home or self-care (01) ==
LOC: ED 17:41
DX: M54.5 Low back pain (principal); R10.9 Unspecified abdominal pain; R11.0 Nausea
CPT/HCPCS: 36000; 36415; 74176; 80053; 81000; 83690; 85025; 87086; 96360; 96374; 96375; 99284; J1170; J2405

== ENCOUNTER 2018-09-29 09:58 | Emergency (ER) | payer OTHER ==
[2018-09-29] MEDS ORDERED: Hydromorphone 1 mg/ml Ampule IV ONE (10:23)
[2018-09-29] MEDS ORDERED: Phenergan 25 MG INJ IV ONE (10:23)
[2018-09-29] MEDS ORDERED: Sodium Chloride 0.9% 1000 ML 1,000 ML IV STA (10:23)
--- NOTE | 2018-09-29 10:24 | ERPHSYRPT ---
- History of Present Illness Time Seen by Provider: 09/29/18 10:18 Historian: patient Exam Limitations: no limitations Patient Subjective Stated Complaint: Pt states "I have kidney problems anyway and today about an hour ago I started to have severe pain in my lower right abdomen and my back." Triage Nursing Assessment: Pt alert and oriented X 3, skin pwd. Pt grunting an groaning, guarding his right lower abdomen. Pt moaning constantly, no brusing or swelling noted. Physician History: The patient is a 38-year-old male complaining of a sudden onset of right flank and right abdominal pain that began about 1-2 hours ago. He is been nauseated and has vomited. He denies shortness of breath or fever. He denies urinary problems. His past medical history is significant for polycystic kidney disease and kidney stones. He has had kidney stones 5 times in the past. No history of abdominal surgery. He is visiting his mother. He normally goes to the [facility] for his problems. He states he is to start on chronic pain medicine when he sees the pain management doctor for the first time on Thursday. Pt states he has a court appearance at 11:30 today. Timing/Duration: today, hour(s) (1), sudden, worse Activities at Onset: none Quality: sharpness, stabbing Abdominal Pain Onset Location: flank (right) Pain Radiation: no radiation Severity of Pain-Max: severe Severity of Pain-Current: severe Modifying Factors: Improves With: nothing Associated Symptoms: nausea, vomiting Previous symptoms: same symptoms as today Allergies/Adverse Reactions: Penicillins Allergy (Severe, Verified 10/13/17 17:55) Rash diphenhydramine HCl [From Benadryl] Allergy (Verified 10/13/17 17:55) ketorolac tromethamine [From Toradol] Allergy (Verified 10/13/17 17:55) Home Medications: No Reportable Medications [No Reported Medications] 10/13/17 [History] Hx Tetanus, Diphtheria Vaccination/Date Given: Yes Hx Influenza Vaccination/Date Given: Yes Hx Pneumococcal Vaccination/Date Given: No Immunizations Up to Date: Yes - Review of Systems Constitutional: No Fever, No Chills Eyes: No Symptoms Ears, Nose, & Throat: No Symptoms Respiratory: No Cough, No Dyspnea Cardiac: No Chest Pain, No Edema, No Syncope Abdominal/Gastrointestinal: Abdominal Pain, Nausea, Vomiting Genitourinary Symptoms: No Dysuria Musculoskeletal: No Back Pain, No Neck Pain Skin: No Rash Neurological: No Dizziness, No Focal Weakness, No Sensory Changes Psychological: No Symptoms Endocrine: No Symptoms Hematologic/Lymphatic: No Symptoms Immunological/Allergic: No Symptoms All Other Systems: Reviewed and Negative - Past Medical History Pertinent Past Medical History: Yes Neurological History: No Pertinent History ENT History: No Pertinent History Cardiac History: No Pertinent History Respiratory History: No Pertinent History Endocrine Medical History: No Pertinent History Musculoskeletal History: No Pertinent History GI Medical History: No Pertinent History, Other History: Other Psycho-Social History: No Pertinent History Male Reproductive Disorders: No Pertinent History Other Medical History: Polycystic kidney disease - Past Surgical History Past Surgical History: No Neuro Surgical History: No Pertinent History Cardiac: No Pertinent History Respiratory: No Pertinent History Gastrointestinal: No Pertinent History Genitourinary: No Pertinent History Musculoskeletal: No Pertinent History Male Surgical History: No Pertinent History - Social History Smoking Status: Current every day smoker How long have you smoked: years Exposure to second hand smoke: Yes Drug Use: none Patient Lives Alone: No Significant Family History: no pertinent family hx - Nursing Vital Signs Nursing Vital Signs: Initial Vital Signs Temperature 98.4 F 09/29/18 10:04 Pulse Rate 107 H 09/29/18 10:04 Respiratory Rate 22 09/29/18 10:04 Blood Pressure 122/110 09/29/18 10:04 O2 Sat by Pulse Oximetry 98 09/29/18 10:04 Pain Scale Pain Intensity 8 - Physical Exam General Appearance: moderate distress Eye Exam: PERRL/EOMI, eyes nml inspection Ears, Nose, Throat Exam: normal ENT inspection, pharynx normal, moist mucous membranes Neck Exam: normal inspection, non-tender, supple, full range of motion Respiratory Exam: normal breath sounds, lungs clear, No respiratory distress Cardiovascular Exam: regular rate/rhythm, normal heart sounds Gastrointestinal/Abdomen Exam: tenderness (right flank) Rectal Exam: not done Back Exam: normal inspection, normal range of motion, No CVA tenderness, No vertebral tenderness Extremity Exam: normal inspection, normal range of motion, pelvis stable Neurologic Exam: alert, oriented x 3, cooperative, normal mood/affect, nml cerebellar function, sensation nml, No motor deficits Skin Exam: normal color, warm, dry SpO2 Interpretation: normal SpO2: 98 Oxygen Delivery: Room Air - CT Exams Abdomen/Pelvis CT Interpretation: Tele-radiologist Report (per Dr Zarate), Other (No hydronephrosis; no ureteral stones; no change from prior abd/pelvis CT; no acute findings.) Ordered Tests: Active Orders 24 hr Category Date Time Status Clean Catch Urine Specimen STAT Care 09/29/18 10:23 Active IV Insertion STAT Care 09/29/18 10:23 Active ABDOMEN AND PELVIS W/0 CONTRAS [CT] Stat Exams 09/29/18 10:24 Taken CBC W DIFF Stat Lab 09/29/18 10:29 Completed CMP Stat Lab 09/29/18 10:29 Completed LIPASE Stat Lab 09/29/18 10:29 Completed Lactic Acid Stat Lab 09/29/18 10:50 Completed UA W/RFX UR CULTURE Stat Lab 09/29/18 10:29 Completed Urine Triage Profile Stat Lab 09/29/18 10:29 Completed Medication Summary Discontinued Medications Generic Name Dose Route Start Last Admin Trade Name Freq PRN Reason Stop Dose Admin Hydromorphone HCl 2 mg 09/29/18 10:23 09/29/18 10:38 Hydromorphone 1 Mg/Ml Ampule IV 09/29/18 10:24 2 mg STAT ONE Administration Hydromorphone HCl Confirm 09/29/18 10:30 Hydromorphone 1 Mg/Ml Ampule Administered 09/29/18 10:31 Dose 1 mg .ROUTE .STK-MED ONE Sodium Chloride 1,000 mls @ 999 mls/hr 09/29/18 10:23 09/29/18 10:39 Sodium Chloride 0.9% 1000 Ml IV 09/29/18 11:23 999 mls/hr .Q1H1M STA Administration Sodium Chloride Confirm 09/29/18 10:30 Sodium Chloride 0.9% 1000 Ml Administered 09/29/18 10:31 Dose 1,000 mls @ ud .ROUTE .STK-MED ONE Promethazine HCl 25 mg 09/29/18 10:23 09/29/18 10:39 Phenergan 25 Mg Inj IV 09/29/18 10:24 25 mg STAT ONE Administration Promethazine HCl Confirm 09/29/18 10:30 Phenergan 25 Mg Inj Administered 09/29/18 10:31 Dose 25 mg .ROUTE .STK-MED ONE Lab/Rad Data: Laboratory Result Diagrams 09/29/18 10:29 09/29/18 10:29 Laboratory Results 09/29/18 09/29/18 09/29/18 Range/Units 10:50 10:29 10:29 WBC (4.0-10.5) K/mm3 RBC (4.1-5.6) M/mm3 Hgb (12.5-18.0) gm/dl Hct (42-50) % MCV (78-100) fl MCH (26-32) pg MCHC (32-36) g/dl RDW (11.5-14.0) % Plt Count (150-450) K/mm3 MPV (6-9.5) fl Gran % (36.0-66.0) % Eos # (Auto) (0-0.5) Absolute Lymphs (auto) (1.0-4.6) Absolute Monos (auto) (0.0-1.3) Lymphocytes % (24.0-44.0) % Monocytes % (0.0-12.0) % Eosinophils % (0.00-5.0) % Basophils % (0.0-0.4) % Absolute Granulocytes (1.4-6.9) Basophils # (0-0.4) Sodium (137-145) mmol/L Potassium (3.5-5.1) mmol/L Chloride (98-107) mmol/L Carbon Dioxide (22-30) mmol/L Anion Gap (5-15) MEQ/L BUN (9-20) mg/dL Creatinine (0.66-1.25) mg/dL Estimated GFR ML/MIN Glucose (74-106) mg/dL Lactic Acid 1.2 (0.4-2.0) Calcium (8.4-10.2) mg/dL Total Bilirubin (0.2-1.3) mg/dL AST (17-59) U/L ALT (0-50) U/L Alkaline Phosphatase (38-126) U/L Serum Total Protein (6.3-8.2) g/dL Albumin (3.5-5.0) g/dL Lipase (23-300) U/L Urine Color YELLOW (YELLOW) Urine Appearance CLEAR (CLEAR) Urine pH 6.0 (5-6) Ur Specific [place] 1.015 (1.005-1.025) Urine Protein NEGATIVE (Negative) Urine Ketones NEGATIVE (NEGATIVE) Urine Blood NEGATIVE (0-5) Varun/ul Urine Nitrite NEGATIVE (NEGATIVE) Urine Bilirubin NEGATIVE (NEGATIVE) Urine Urobilinogen 2 (0-1) mg/dL Ur Leukocyte Esterase NEGATIVE (NEGATIVE) Urine WBC (Auto) 3-5 (0-5) /HPF Urine RBC (Auto) NONE (0-2) /HPF U Epithel Cells (Auto) NONE (FEW) /HPF Urine Bacteria (Auto) NONE (NEGATIVE) /HPF Urine Mucus (Auto) SLIGHT (NEGATIVE) /HPF Urine Culture Reflexed NO (NO) Urine Glucose NEGATIVE (NEGATIVE) mg/dL Urine Opiates Level NEGATIVE (NEGATIVE) Ur Methadone NEGATIVE (NEGATIVE) Urine Barbiturates NEGATIVE (NEGATIVE) Ur Phencyclidine (PCP) NEGATIVE (NEGATIVE) Urine Amphetamine NEGATIVE (NEGATIVE) U Benzodiazepine Level NEGATIVE (NEGATIVE) Urine Cocaine NEGATIVE (NEGATIVE) Urine Marijuana (THC) POSITIVE (NEGATIVE) 09/29/18 09/29/18 Range/Units 10:29 10:29 WBC 8.2 (4.0-10.5) K/mm3 RBC 4.80 (4.1-5.6) M/mm3 Hgb 15.1 (12.5-18.0) gm/dl Hct 44.6 (42-50) % MCV 92.9 (78-100) fl MCH 31.5 (26-32) pg MCHC 33.9 (32-36) g/dl RDW 12.8 (11.5-14.0) % Plt Count 341 (150-450) K/mm3 MPV 9.1 (6-9.5) fl Gran % 53.6 (36.0-66.0) % Eos # (Auto) 0.25 (0-0.5) Absolute Lymphs (auto) 2.85 (1.0-4.6) Absolute Monos (auto) 0.68 (0.0-1.3) Lymphocytes % 34.6 (24.0-44.0) % Monocytes % 8.3 (0.0-12.0) % Eosinophils % 3.0 (0.00-5.0) % Basophils % 0.5 (0.0-0.4) % Absolute Granulocytes 4.41 (1.4-6.9) Basophils # 0.04 (0-0.4) Sodium 141 (137-145) mmol/L Potassium 3.6 (3.5-5.1) mmol/L Chloride 105 (98-107) mmol/L Carbon Dioxide 24 (22-30) mmol/L Anion Gap 15.3 H (5-15) MEQ/L BUN 18 (9-20) mg/dL Creatinine 1.40 H (0.66-1.25) mg/dL Estimated GFR > 60.0 ML/MIN Glucose 102 (74-106) mg/dL Lactic Acid (0.4-2.0) Calcium 9.7 (8.4-10.2) mg/dL Total Bilirubin 0.30 (0.2-1.3) mg/dL AST 25 (17-59) U/L ALT 19 (0-50) U/L Alkaline Phosphatase 67 (38-126) U/L Serum Total Protein 7.9 (6.3-8.2) g/dL Albumin 4.7 (3.5-5.0) g/dL Lipase 102 (23-300) U/L Urine Color (YELLOW) Urine Appearance (CLEAR) Urine pH (5-6) Ur Specific [place] (1.005-1.025) Urine Protein (Negative) Urine Ketones (NEGATIVE) Urine Blood (0-5) Varun/ul Urine Nitrite (NEGATIVE) Urine Bilirubin (NEGATIVE) Urine Urobilinogen (0-1) mg/dL Ur Leukocyte Esterase (NEGATIVE) Urine WBC (Auto) (0-5) /HPF Urine RBC (Auto) (0-2) /HPF U Epithel Cells (Auto) (FEW) /HPF Urine Bacteria (Auto) (NEGATIVE) /HPF Urine Mucus (Auto) (NEGATIVE) /HPF Urine Culture Reflexed (NO) Urine Glucose (NEGATIVE) mg/dL Urine Opiates Level (NEGATIVE) Ur Methadone (NEGATIVE) Urine Barbiturates (NEGATIVE) Ur Phencyclidine (PCP) (NEGATIVE) Urine Amphetamine (NEGATIVE) U Benzodiazepine Level (NEGATIVE) Urine Cocaine (NEGATIVE) Urine Marijuana (THC) (NEGATIVE) - Progress Progress: improved Progress Note: 09/29/18 11:24 Pt given dilaudid 2 mg and phenergan 25 mg IV. Pt still states he has pain. Pt' s urine drug screen is positive only for THC, even though pt told me he took norco. Counseled pt/family regarding: lab results, diagnosis, need for follow-up, rad results - Departure Time of Disposition: 11:27 Departure Disposition: Home Clinical Impression: Abdominal pain, Polycystic kidney disease, adult type Condition: Stable Critical Care Time: No Referrals: DOCTOR,NO FAMILY [NON-STAFF PHY W/O PRIVILEGES] - Additional Instructions: You have abdominal pain. The CT scan of the her abdomen/pelvis was unchanged from prior CT scan. You do not have any stones in your ureter nor do you have hydronephrosis. You were given Dilaudid 2 mg and Phenergan 25 mg by IV in the ER. You were discharged in time to call regarding your court date and time this morning. Follow-up with the pain management doctor on Thursday as scheduled.
[2018-09-29] MEDS ORDERED: Sodium Chloride 0.9% 1000 ML 1,000 ML ONE (10:30)
[2018-09-29] MEDS ORDERED: Phenergan 25 MG INJ ONE (10:30)
[2018-09-29] MEDS ORDERED: Hydromorphone 1 mg/ml Ampule ONE (10:30)
[2018-09-29 10:31] LABS: BASOPHIL % 0.5 % (0.0-0.4); Basophil (Absolute #) 0.04 (0-0.4); Eosinophil (Absolute #) 0.25 (0-0.5); Granulocyte Absolute (ANC) 4.41 (1.4-6.9); Granulocytes % 53.6 % (36.0-66.0); Hematocrit 44.6 % (42-50); Hemoglobin 15.1 gm/dl (12.5-18.0); Lymphocyte (Absolute #) 2.85 (1.0-4.6); Lymphocytes % 34.6 % (24.0-44.0); Mean Cell Volume 92.9 fl (78-100); Mean Corpuscular Hemoglobin 31.5 pg (26-32); Mean Corpuscular Hgb Concent. 33.9 g/dl (32-36); Mean Platelet Volume 9.1 fl (6-9.5); Monocyte (Absolute #) 0.68 (0.0-1.3); Monocytes % 8.3 % (0.0-12.0); Platelet Count 341 K/mm3 (150-450); Red Cell Distribution Width 12.8 % (11.5-14.0); White Blood Count 8.2 K/mm3 (4.0-10.5)
[2018-09-29 10:35] LABS: Appearance CLEAR (CLEAR); Bilirubin NEGATIVE (NEGATIVE); Blood NEGATIVE Ery/ul (0-5); Glucose NEGATIVE (NEGATIVE); Ketones NEGATIVE (NEGATIVE); Leukocyte Esterase NEGATIVE (NEGATIVE); Nitrite NEGATIVE (NEGATIVE); Protein,Urine Dip NEGATIVE (Negative); Specific Gravity 1.015 (1.005-1.025); Urobilinogen 2 mg/dL (0-1)
[2018-09-29 10:40] LABS: ALBUMIN 4.7 g/dL (3.5-5.0); ALKALINE PHOSPHATASE 67 U/L (38-126); ANION GAP 15.3 MEQ/L (5-15); BLOOD UREA NITROGEN 18 mg/dL (9-20); CHLORIDE 105 mmol/L (98-107); Calcium 9.7 mg/dL (8.4-10.2); Carbon Dioxide 24 mmol/L (22-30); Glucose 102 mg/dL (74-106); LIPASE 102 U/L (23-300); Potassium 3.6 mmol/L (3.5-5.1); SGOT/AST 25 U/L (17-59); SGPT/ALT 19 U/L (0-50); SODIUM 141 mmol/L (137-145); Total Protein 7.9 g/dL (6.3-8.2)
[2018-09-29 11:00] LABS: Amphetamine,Urine NEGATIVE (NEGATIVE); Barbiturate,Urine NEGATIVE (NEGATIVE); Benzodiazepine,Urine NEGATIVE (NEGATIVE); Cocaine,Urine NEGATIVE (NEGATIVE); Methadone,Urine NEGATIVE (NEGATIVE); Opiate,Urine NEGATIVE (NEGATIVE); PCP,Urine NEGATIVE (NEGATIVE); THC,Urine POSITIVE (NEGATIVE)
[2018-09-29 11:21] VITALS: BP 123/93; PULSE 90
[2018-09-29 11:29] VITALS: O2SAT 98
--- NOTE | 2018-09-29 11:31 | XRAY ---
Indication: Sudden onset right sided pain. Multiple contiguous axial images obtained through the abdomen and pelvis without contrast using renal stone protocol. Comparison: October 13, 2017. Lung bases again demonstrates bibasilar dependent atelectasis with new minimal scattered fibrosis/scarring. No infiltrate, consolidation, or effusion. Heart is not enlarged. Stable appearing bilateral polycystic kidney disease with minimal peripheral calcifications. No renal calculus or evidence for obstructive uropathy in either system. Stable tiny right lobe hepatic cyst and a few calcified splenic granulomas. Noncontrasted stomach and bowel loops appear nonobstructed. Normal appendix. No free fluid/air. Remaining liver, gallbladder, pancreas, spleen, adrenal glands, kidneys, ureters, bladder, and aorta appear unremarkable for noncontrast exam. Osseous structures intact. Stable small fatty umbilical and small fatty left inguinal hernias. Impression: 1. Stable bilateral polycystic kidney disease with peripheral calcifications. 2. Again negative renal calculus or evidence for obstructive uropathy. 3. Stable tiny hepatic cyst, fatty umbilical hernia, fatty left inguinal hernia, and evidence for old granulomatous disease. CT DI 21.95
== END 2018-09-29 11:44 | disposition home or self-care (01) ==
LOC: ED 09:58
DX: R10.9 Unspecified abdominal pain (principal); R11.2 Nausea with vomiting, unspecified; Q61.2 Polycystic kidney, adult type
CPT/HCPCS: 36000; 36415; 74176; 80053; 80307; 81001; 83605; 83690; 85025; 96360; 96374; 96375; 99284; J1170; J2550

== ENCOUNTER 2018-11-01 01:13 | Emergency (ER) | payer OTHER ==
[2018-11-01] MEDS ORDERED: Sodium Chloride 0.9% 1000 ML 1,000 ML IV STA (01:46)
[2018-11-01] MEDS ORDERED: Phenergan 25 MG INJ IV ONE (01:51)
[2018-11-01] MEDS ORDERED: MORPHINE SULFATE 4 MG INJ IV ONE ×3 (01:51→04:30)
--- NOTE | 2018-11-01 01:55 | ERPHSYRPT ---
- History of Present Illness Time Seen by Provider: 11/01/18 01:35 Source: patient Exam Limitations: no limitations Patient Subjective Stated Complaint: RLQ abdominal and right flank pain described as stabbing constant pain that began approximately 10 minutes ago. Triage Nursing Assessment: Pt alert and oriented x 4. Grimacing and guarding d/ t pain. Physician History: 38-year-old white male with history of polycystic kidney disease, chronic pain, he arrives with complaint of 10 minutes of severe sharp abdominal and flank pain located on the right side symptoms since 10 minutes prior to arrival no nausea no vomiting. Patient was seen here approximately 1 month earlier for the same complaint. Past medical history includes polycystic kidney disease, chronic pain,. Past surgical history includes negative. Timing/Duration: today (10 minutes prior to arrival) Severity: moderate Modifying Factors: Improves With: nothing Associated Symptoms: abdominal pain (Right lower quadrant abdominal pain), other (Right flank pain), No nausea, No vomiting, No shortness of breath, No heartburn, No diaphoresis, No cough, No chills, No chest pain, No fever, No headaches, No loss of appetite, No malaise, No rash, No syncope, No seizure, No weakness Allergies/Adverse Reactions: Penicillins Allergy (Severe, Verified 11/01/18 01:32) Rash diphenhydramine HCl [From Benadryl] Allergy (Verified 11/01/18 01:32) haloperidol [From Haldol] Allergy (Verified 11/01/18 01:32) ketorolac tromethamine [From Toradol] Allergy (Verified 11/01/18 01:32) Hx Tetanus, Diphtheria Vaccination/Date Given: Yes Hx Influenza Vaccination/Date Given: Yes Hx Pneumococcal Vaccination/Date Given: No - Review of Systems Constitutional: No Fever, No Chills Eyes: No Symptoms Ears, Nose, & Throat: No Symptoms Respiratory: No Cough, No Dyspnea Cardiac: No Chest Pain, No Edema, No Syncope Abdominal/Gastrointestinal: Abdominal Pain (Right lower quadrant abdominal pain) , No Nausea, No Vomiting, No Diarrhea, No Constipation, No Hematemesis, No Hematochezia, No Melena, No Dysphagia, No Appetite Changes Genitourinary Symptoms: Flank Pain (rightflank pain), No Dysuria, No Frequency, No Hematuria, No Hesitancy, No Incontinence, No Urgency, No Urinary Retention, No Testicle Pain, No Penile Discharge Musculoskeletal: No Back Pain, No Neck Pain Skin: No Rash Neurological: No Dizziness, No Focal Weakness, No Sensory Changes Psychological: No Symptoms Endocrine: No Symptoms All Other Systems: Reviewed and Negative - Past Medical History Pertinent Past Medical History: Yes Neurological History: No Pertinent History ENT History: No Pertinent History Cardiac History: No Pertinent History Respiratory History: No Pertinent History Endocrine Medical History: No Pertinent History Musculoskeletal History: No Pertinent History GI Medical History: No Pertinent History, Other History: Other Psycho-Social History: No Pertinent History Male Reproductive Disorders: No Pertinent History Other Medical History: Polycystic kidney disease, kidney stones - Past Surgical History Past Surgical History: No Neuro Surgical History: No Pertinent History Cardiac: No Pertinent History Respiratory: No Pertinent History Gastrointestinal: No Pertinent History Genitourinary: No Pertinent History Musculoskeletal: No Pertinent History Male Surgical History: No Pertinent History - Social History Smoking Status: Current every day smoker How long have you smoked: years Exposure to second hand smoke: Yes Drug Use: none Patient Lives Alone: No Significant Family History: no pertinent family hx - Nursing Vital Signs Nursing Vital Signs: Initial Vital Signs Temperature 98.4 F 11/01/18 01:23 Pulse Rate 85 11/01/18 01:23 Respiratory Rate 16 11/01/18 01:23 Blood Pressure 120/85 11/01/18 01:23 O2 Sat by Pulse Oximetry 98 11/01/18 01:23 Pain Scale Pain Intensity 9 - Physical Exam General Appearance: moderate distress, alert Eye Exam: PERRL/EOMI, eyes nml inspection Ears, Nose, Throat Exam: normal ENT inspection, TMs normal, pharynx normal, moist mucous membranes Neck Exam: normal inspection, non-tender, supple, full range of motion Respiratory Exam: normal breath sounds, lungs clear, No respiratory distress Cardiovascular Exam: regular rate/rhythm, normal heart sounds, normal peripheral pulses, capillary refill <2 sec Gastrointestinal/Abdomen Exam: soft, normal bowel sounds, tenderness (right lower quadrant tenderness), No distention, No mass, No guarding, No ecchymosis, No pulsatile mass, No rebound, No hernia, No hepatomegaly, No organomegaly, No splenomegaly Back Exam: CVA tenderness (right flank tenderness), No normal range of motion, No vertebral tenderness, No rash, No decreased range of motion, No muscle spasm , No point tenderness Extremity Exam: normal inspection, normal range of motion, pelvis stable Neurologic Exam: alert, oriented x 3, cooperative, patcher helper II-XII nml as tested, normal mood/affect, nml cerebellar function, nml station & gait, sensation nml, No motor deficits Skin Exam: normal color, warm, dry, No rash Lymphatic Exam: No adenopathy SpO2 Interpretation: normal (98%) SpO2: 98 Oxygen Delivery: Room Air - Course Nursing assessment & vital signs reviewed: Yes - CT Exams Abdomen/Pelvis CT Interpretation: Tele-radiologist Report (CT abdomen and pelvis impression 1. Findings consistent with polycystic kidney disease, similar to prior study.) Ordered Tests: Active Orders 24 hr Category Date Time Status IV Insertion STAT Care 11/01/18 01:46 Active ABDOMEN AND PELVIS W/0 CONTRAS [CT] Stat Exams 11/01/18 02:09 Taken AMYLASE Stat Lab 11/01/18 02:00 Completed CBC W DIFF Stat Lab 11/01/18 02:00 Completed CMP Stat Lab 11/01/18 02:00 Completed CULTURE,URINE Stat Lab 11/01/18 01:50 Received UA W/RFX UR CULTURE Stat Lab 11/01/18 01:50 Completed Urine Triage Profile Stat Lab 11/01/18 01:50 Completed Medication Summary Generic Name Dose Route Start Last Admin Trade Name Freq PRN Reason Stop Dose Admin Morphine Sulfate 4 mg 11/01/18 04:30 Morphine Sulfate 4 Mg Inj IV 11/01/18 04:31 STAT ONE Discontinued Medications Generic Name Dose Route Start Last Admin Trade Name Freq PRN Reason Stop Dose Admin Sodium Chloride 1,000 mls @ 999 mls/hr 11/01/18 01:46 11/01/18 02:01 Sodium Chloride 0.9% 1000 Ml IV 11/01/18 02:46 999 mls/hr .Q1H1M STA Administration Sodium Chloride Confirm 11/01/18 01:59 Sodium Chloride 0.9% 1000 Ml Administered 11/01/18 02:00 Dose 1,000 mls @ ud .ROUTE .STK-MED ONE Morphine Sulfate 4 mg 11/01/18 01:51 11/01/18 02:01 Morphine Sulfate 4 Mg Inj IV 11/01/18 01:52 4 mg STAT ONE Administration Morphine Sulfate Confirm 11/01/18 01:59 Morphine Sulfate 4 Mg Inj Administered 11/01/18 02:00 Dose 4 mg .ROUTE .STK-MED ONE Morphine Sulfate 4 mg 11/01/18 03:03 11/01/18 03:08 Morphine Sulfate 4 Mg Inj IV 11/01/18 03:04 4 mg STAT ONE Administration Morphine Sulfate Confirm 11/01/18 03:05 Morphine Sulfate 4 Mg Inj Administered 11/01/18 03:06 Dose 4 mg .ROUTE .STK-MED ONE Promethazine HCl 12.5 mg 11/01/18 01:51 11/01/18 02:01 Phenergan 25 Mg Inj IV 11/01/18 01:52 12.5 mg STAT ONE Administration Promethazine HCl Confirm 11/01/18 01:59 Phenergan 25 Mg Inj Administered 11/01/18 02:00 Dose 25 mg .ROUTE .STK-MED ONE Lab/Rad Data: Laboratory Result Diagrams 11/01/18 02:00 11/01/18 02:00 Laboratory Results 11/01/18 11/01/18 11/01/18 Range/Units 02:00 02:00 01:50 WBC 7.5 (4.0-10.5) K/mm3 RBC 4.38 (4.1-5.6) M/mm3 Hgb 13.8 (12.5-18.0) gm/dl Hct 42.0 (42-50) % MCV 95.9 (78-100) fl MCH 31.5 (26-32) pg MCHC 32.9 (32-36) g/dl RDW 13.3 (11.5-14.0) % Plt Count 245 (150-450) K/mm3 MPV 9.4 (6-9.5) fl Gran % 39.9 (36.0-66.0) % Eos # (Auto) 0.25 (0-0.5) Absolute Lymphs (auto) 3.65 (1.0-4.6) Absolute Monos (auto) 0.60 (0.0-1.3) Lymphocytes % 48.5 H (24.0-44.0) % Monocytes % 8.0 (0.0-12.0) % Eosinophils % 3.3 (0.00-5.0) % Basophils % 0.3 (0.0-0.4) % Absolute Granulocytes 3.00 (1.4-6.9) Basophils # 0.02 (0-0.4) Sodium 141 (137-145) mmol/L Potassium 3.8 (3.5-5.1) mmol/L Chloride 107 (98-107) mmol/L Carbon Dioxide 26 (22-30) mmol/L Anion Gap 11.4 (5-15) MEQ/L BUN 14 (9-20) mg/dL Creatinine 1.27 H (0.66-1.25) mg/dL Estimated GFR > 60.0 ML/MIN Glucose 104 (74-106) mg/dL Calcium 9.3 (8.4-10.2) mg/dL Total Bilirubin 0.40 (0.2-1.3) mg/dL AST 56 (17-59) U/L ALT 24 (0-50) U/L Alkaline Phosphatase 58 (38-126) U/L Serum Total Protein 6.6 (6.3-8.2) g/dL Albumin 4.0 (3.5-5.0) g/dL Amylase 84 (30-110) U/L Urine Color (YELLOW) Urine Appearance (CLEAR) Urine pH (5-6) Ur Specific [place] (1.005-1.025) Urine Protein (Negative) Urine Ketones (NEGATIVE) Urine Blood (0-5) Varun/ul Urine Nitrite (NEGATIVE) Urine Bilirubin (NEGATIVE) Urine Urobilinogen (0-1) mg/dL Ur Leukocyte Esterase (NEGATIVE) Urine WBC (Auto) (0-5) /HPF Urine RBC (Auto) (0-2) /HPF U Epithel Cells (Auto) (FEW) /HPF Urine Bacteria (Auto) (NEGATIVE) /HPF Other Casts (Auto) (NEGATIVE) /LPF Urine Mucus (Auto) (NEGATIVE) /HPF Urine Culture Reflexed (NO) Urine Glucose (NEGATIVE) mg/dL Urine Opiates Level NEGATIVE (NEGATIVE) Ur Methadone NEGATIVE (NEGATIVE) Urine Barbiturates NEGATIVE (NEGATIVE) Ur Phencyclidine (PCP) NEGATIVE (NEGATIVE) Urine Amphetamine NEGATIVE (NEGATIVE) U Benzodiazepine Level NEGATIVE (NEGATIVE) Urine Cocaine NEGATIVE (NEGATIVE) Urine Marijuana (THC) POSITIVE (NEGATIVE) 11/01/18 Range/Units 01:50 WBC (4.0-10.5) K/mm3 RBC (4.1-5.6) M/mm3 Hgb (12.5-18.0) gm/dl Hct (42-50) % MCV (78-100) fl MCH (26-32) pg MCHC (32-36) g/dl RDW (11.5-14.0) % Plt Count (150-450) K/mm3 MPV (6-9.5) fl Gran % (36.0-66.0) % Eos # (Auto) (0-0.5) Absolute Lymphs (auto) (1.0-4.6) Absolute Monos (auto) (0.0-1.3) Lymphocytes % (24.0-44.0) % Monocytes % (0.0-12.0) % Eosinophils % (0.00-5.0) % Basophils % (0.0-0.4) % Absolute Granulocytes (1.4-6.9) Basophils # (0-0.4) Sodium (137-145) mmol/L Potassium (3.5-5.1) mmol/L Chloride (98-107) mmol/L Carbon Dioxide (22-30) mmol/L Anion Gap (5-15) MEQ/L BUN (9-20) mg/dL Creatinine (0.66-1.25) mg/dL Estimated GFR ML/MIN Glucose (74-106) mg/dL Calcium (8.4-10.2) mg/dL Total Bilirubin (0.2-1.3) mg/dL AST (17-59) U/L ALT (0-50) U/L Alkaline Phosphatase (38-126) U/L Serum Total Protein (6.3-8.2) g/dL Albumin (3.5-5.0) g/dL Amylase (30-110) U/L Urine Color YELLOW (YELLOW) Urine Appearance CLEAR (CLEAR) Urine pH 6.0 (5-6) Ur Specific [place] 1.013 (1.005-1.025) Urine Protein NEGATIVE (Negative) Urine Ketones NEGATIVE (NEGATIVE) Urine Blood NEGATIVE (0-5) Varun/ul Urine Nitrite NEGATIVE (NEGATIVE) Urine Bilirubin NEGATIVE (NEGATIVE) Urine Urobilinogen NEGATIVE (0-1) mg/dL Ur Leukocyte Esterase NEGATIVE (NEGATIVE) Urine WBC (Auto) 6-10 (0-5) /HPF Urine RBC (Auto) 6-10 (0-2) /HPF U Epithel Cells (Auto) NONE (FEW) /HPF Urine Bacteria (Auto) NONE (NEGATIVE) /HPF Other Casts (Auto) NEGATIVE (NEGATIVE) /LPF Urine Mucus (Auto) SLIGHT (NEGATIVE) /HPF Urine Culture Reflexed YES (NO) Urine Glucose NEGATIVE (NEGATIVE) mg/dL Urine Opiates Level (NEGATIVE) Ur Methadone (NEGATIVE) Urine Barbiturates (NEGATIVE) Ur Phencyclidine (PCP) (NEGATIVE) Urine Amphetamine (NEGATIVE) U Benzodiazepine Level (NEGATIVE) Urine Cocaine (NEGATIVE) Urine Marijuana (THC) (NEGATIVE) - Progress Progress: improved Progress Note: 11/01/18 04:[address] of the abdomen and pelvis, impression 1. Findings consistent with polycystic kidney disease similar to prior studies. There is no hydronephrosis on either side there are no renal collecting system stones identified. Patient with a normal-appearing appendix. Patient improved with still with some pain in the right flank Patient's urine 6-10 white cells 6-10 red cells negative nitrites negative leukocyte esterase. Patient has received 1 L of normal saline and 8 mg of morphine will give additional 4 mg of morphine plan home with [place]. Patient will need to follow-up with his family doctor. - Departure Time of Disposition: 04:32 Departure Disposition: Home Clinical Impression: Polycystic kidney disease, adult type, Low back pain Abdominal pain Qualifiers: Abdominal location: right lower quadrant Qualified Code(s): R10.31 - Right lower quadrant pain Condition: Fair Critical Care Time: No Referrals: NIKI MYERS MD [Primary Care Provider] - Instructions: Flank Pain Additional Instructions: Return home. Plenty of fluids. Gran[place] as prescribed. Your CT of the abdomen and pelvis show your chronic polycystic kidney disease similar to last study done in September there are no renal collecting system stones identified there is no hydronephrosis on either side you have a normal appearing appendix. Follow-up with your renal physician or your family doctor. Return for acute distress or for severe symptoms. Prescriptions: Hydrocodone/Acetaminophen [[place] 5-325 Tablet] 1 tab PO Q4-6HPRN PRN #12 tablet MDD 6 tablets PRN Reason: Pain
[2018-11-01] MEDS ORDERED: MORPHINE SULFATE 4 MG INJ ONE ×3 (01:59→05:03)
[2018-11-01] MEDS ORDERED: Sodium Chloride 0.9% 1000 ML 1,000 ML ONE (01:59)
[2018-11-01] MEDS ORDERED: Phenergan 25 MG INJ ONE (01:59)
[2018-11-01 02:03] LABS: BASOPHIL % 0.3 % (0.0-0.4); Basophil (Absolute #) 0.02 (0-0.4); Eosinophil % 3.3 % (0.00-5.0); Eosinophil (Absolute #) 0.25 (0-0.5); Granulocytes % 39.9 % (36.0-66.0); Hemoglobin 13.8 gm/dl (12.5-18.0); Lymphocyte (Absolute #) 3.65 (1.0-4.6); Lymphocytes % 48.5 % (24.0-44.0); Mean Cell Volume 95.9 fl (78-100); Mean Corpuscular Hemoglobin 31.5 pg (26-32); Mean Corpuscular Hgb Concent. 32.9 g/dl (32-36); Mean Platelet Volume 9.4 fl (6-9.5); Platelet Count 245 K/mm3 (150-450); Red Blood Count 4.38 M/mm3 (4.1-5.6); Red Cell Distribution Width 13.3 % (11.5-14.0); White Blood Count 7.5 K/mm3 (4.0-10.5)
[2018-11-01 02:13] LABS: Appearance CLEAR (CLEAR); Bilirubin NEGATIVE (NEGATIVE); Blood NEGATIVE Ery/ul (0-5); Glucose NEGATIVE (NEGATIVE); Ketones NEGATIVE (NEGATIVE); Leukocyte Esterase NEGATIVE (NEGATIVE); Nitrite NEGATIVE (NEGATIVE); Protein,Urine Dip NEGATIVE (Negative); Specific Gravity 1.013 (1.005-1.025); Urobilinogen NEGATIVE mg/dL (0-1)
[2018-11-01 02:20] LABS: ALKALINE PHOSPHATASE 58 U/L (38-126); AMYLASE 84 U/L (30-110); ANION GAP 11.4 MEQ/L (5-15); BLOOD UREA NITROGEN 14 mg/dL (9-20); CHLORIDE 107 mmol/L (98-107); Calcium 9.3 mg/dL (8.4-10.2); Carbon Dioxide 26 mmol/L (22-30); Creatinine 1 1.27 mg/dL (0.66-1.25); Glucose 104 mg/dL (74-106); Potassium 3.8 mmol/L (3.5-5.1); SGOT/AST 56 U/L (17-59); SGPT/ALT 24 U/L (0-50); SODIUM 141 mmol/L (137-145); Total Protein 6.6 g/dL (6.3-8.2)
[2018-11-01 02:42] LABS: Amphetamine,Urine NEGATIVE (NEGATIVE); Barbiturate,Urine NEGATIVE (NEGATIVE); Benzodiazepine,Urine NEGATIVE (NEGATIVE); Cocaine,Urine NEGATIVE (NEGATIVE); Methadone,Urine NEGATIVE (NEGATIVE); Opiate,Urine NEGATIVE (NEGATIVE); PCP,Urine NEGATIVE (NEGATIVE); THC,Urine POSITIVE (NEGATIVE)
[2018-11-01 05:16] VITALS: BP 129/90; PULSE 73; O2SAT 96
--- NOTE | 2018-11-01 08:34 | XRAY ---
Indication: Right lower quadrant and right flank pain. History polycystic kidney disease. Multiple contiguous axial images obtained through the abdomen and pelvis without contrast as ordered. Comparison: September 29, 2018. Lung bases demonstrates mild bibasilar dependent atelectasis. Heart is not enlarged. Partially visualized right hilar calcified node. Stomach is distended with food/fluid. Noncontrasted stomach and bowel loops appear nonobstructed. Normal appendix. No free fluid/air. Stable bilateral polycystic kidney disease with calcifications. No new renal calculus or evidence for obstructive uropathy. Stable tiny right lobe hepatic cyst and tiny calcified splenic granulomas. Remaining liver, gallbladder, pancreas, spleen, adrenal glands, kidneys, ureters, bladder, and aorta appear unremarkable for noncontrast exam. Osseous structures intact. Stable small fatty left inguinal hernia. Impression: 1. Stable bilateral polycystic kidney disease with calcifications, tiny hepatic cyst, fatty left inguinal hernia, and evidence for old granulomatous disease. 2. No new or acute intra-abdominal/pelvic abnormalities on this noncontrast exam. Comment: Preliminary interpretation was made by C. No discrepancy. CTDI 22.15
== END 2018-11-01 05:24 | disposition home or self-care (01) ==
LOC: ED 01:13
DX: Q61.2 Polycystic kidney, adult type (principal); R10.31 Right lower quadrant pain; M54.5 Low back pain
CPT/HCPCS: 36000; 36415; 74176; 80053; 80307; 81001; 82150; 85025; 87086; 96360; 96374; 96375; 96376; 99284; J2270; J2550

== ENCOUNTER 2021-07-21 19:05 | Emergency (ER) | payer OTHER ==
[2021-07-21] MEDS ORDERED: Sodium Chloride 0.9% 1000 ML 1,000 ML IV STA (19:31)
[2021-07-21] MEDS ORDERED: MORPHINE SULFATE 4 MG INJ IV ONE ×2 (19:31→20:42)
[2021-07-21] MEDS ORDERED: Zofran 4 MG/2 ML VIAL IV ONE (19:31)
[2021-07-21] MEDS ORDERED: TYLENOL 325 MG PO ONE (19:39)
--- NOTE | 2021-07-21 19:39 | ERPHSYRPT ---
- History of Present Illness Time Seen by Provider: 07/21/21 19:07 Historian: patient Exam Limitations: no limitations Physician History: 41 years old male with history of kidney stones, polycystic kidney disease presented in the ER with chief complaint of sudden onset left flank pain radiating to left groin moderate to severe sharp nature, aggravated with movements palpation and no significant relieving factors. On arrival in the ER patient urine showed alhaji blood. Patient also reports having similar symptoms multiple times. Also report feeling nauseated fatigued tired for the last few days with associated nausea and vomiting. No shortness of breath. Denies any sick contact. Timing/Duration: hour(s) (4), constant, gradual onset, worse Activities at Onset: rest Quality: sharpness Abdominal Pain Onset Location: flank Pain Radiation: groin Severity of Pain-Max: severe Severity of Pain-Current: severe Modifying Factors: Worsens With: coughing, movement, palpation Associated Symptoms: fatigue, nausea, vomiting, weakness Previous symptoms: same symptoms as today Allergies/Adverse Reactions: Penicillins Allergy (Severe, Verified 07/21/21 19:25) Rash diphenhydramine HCl [From Benadryl] Allergy (Verified 07/21/21 19:25) haloperidol [From Haldol] Allergy (Verified 07/21/21 19:25) ketorolac tromethamine [From Toradol] Allergy (Verified 07/21/21 19:25) Hx Tetanus, Diphtheria Vaccination/Date Given: Yes Hx Influenza Vaccination/Date Given: Yes Hx Pneumococcal Vaccination/Date Given: No - Review of Systems Constitutional: Fever, Chills, Fatigue, Weakness Eyes: No Symptoms Ears, Nose, & Throat: No Symptoms Respiratory: No Symptoms Cardiac: No Symptoms Abdominal/Gastrointestinal: Abdominal Pain, Nausea, Vomiting Genitourinary Symptoms: Dysuria, Hematuria, Flank Pain Musculoskeletal: Myalgias Skin: No Symptoms Neurological: No Symptoms Psychological: No Symptoms Endocrine: No Symptoms Hematologic/Lymphatic: No Symptoms Immunological/Allergic: No Symptoms - Past Medical History Pertinent Past Medical History: Yes Neurological History: No Pertinent History ENT History: No Pertinent History Cardiac History: No Pertinent History Respiratory History: No Pertinent History Endocrine Medical History: No Pertinent History Musculoskeletal History: No Pertinent History GI Medical History: No Pertinent History, Other History: Other Psycho-Social History: No Pertinent History Male Reproductive Disorders: No Pertinent History Other Medical History: Polycystic kidney disease, kidney stones - Past Surgical History Past Surgical History: No Neuro Surgical History: No Pertinent History Cardiac: No Pertinent History Respiratory: No Pertinent History Gastrointestinal: No Pertinent History Genitourinary: No Pertinent History Musculoskeletal: No Pertinent History Male Surgical History: No Pertinent History - Social History Smoking Status: Current every day smoker How long have you smoked: years Exposure to second hand smoke: Yes Drug Use: none Patient Lives Alone: No Significant Family History: no pertinent family hx - Nursing Vital Signs Nursing Vital Signs: Initial Vital Signs Temperature 100.6 F 07/21/21 19:25 Pulse Rate 123 H 07/21/21 19:25 Respiratory Rate 22 07/21/21 19:25 Blood Pressure 97/75 07/21/21 19:25 Pain Scale Pain Intensity 7 - Physical Exam General Appearance: no apparent distress, alert Eye Exam: PERRL/EOMI, eyes nml inspection Ears, Nose, Throat Exam: normal ENT inspection, pharyngeal erythema Neck Exam: normal inspection, non-tender, supple, full range of motion Respiratory Exam: normal breath sounds, lungs clear Cardiovascular Exam: normal heart sounds, tachycardia Gastrointestinal/Abdomen Exam: soft, normal bowel sounds, tenderness (Left flank/left lower quadrant) Back Exam: normal inspection, normal range of motion, CVA tenderness (Left) Extremity Exam: normal inspection, normal range of motion Neurologic Exam: alert, oriented x 3, cooperative, cardiopulmonary technician II-XII nml as tested Skin Exam: normal color SpO2 Interpretation: normal SpO2: 98 O2 Delivery: Room Air Ordered Tests: Medication Summary Discontinued Medications Generic Name Dose Route Start Last Admin Trade Name Eduinq PRN Reason Stop Dose Admin Acetaminophen 975 mg 07/21/21 19:39 07/21/21 19:48 Tylenol 325 Mg PO 07/21/21 19:40 975 mg STAT ONE Administration Acetaminophen Confirm 07/21/21 19:46 Tylenol 325 Mg Administered 07/21/21 19:47 Dose 975 mg .ROUTE .STK-MED ONE Hydrocodone Bitart/Acetaminophen 2 tab 07/21/21 21:58 07/21/21 22:02 [place] 5/325 Mg PO 07/21/21 21:59 2 tab SENT HOME W/ PATIENT ONE Administration Hydrocodone Bitart/Acetaminophen Confirm 07/21/21 22:02 [place] 5/325 Mg Administered 07/21/21 22:03 Dose 2 tab .ROUTE .STK-MED ONE Sodium Chloride 1,000 mls @ 999 mls/hr 07/21/21 19:31 07/21/21 20:51 Sodium Chloride 0.9% 1000 Ml IV 07/21/21 20:31 Infused .Q1H1M STA Infusion Sodium Chloride Confirm 07/21/21 19:46 Sodium Chloride 0.9% 1000 Ml Administered 07/21/21 19:47 Dose 1,000 mls @ ud .ROUTE .STK-MED ONE Levofloxacin 500 mg 07/21/21 21:28 07/21/21 21:32 Levofloxacin 250mg Tablet PO 07/21/21 21:29 500 mg STAT ONE Administration Levofloxacin Confirm 07/21/21 21:32 Levofloxacin 250mg Tablet Administered 07/21/21 21:33 Dose 500 mg .ROUTE .STK-MED ONE Morphine Sulfate 4 mg 07/21/21 19:31 07/21/21 19:49 Morphine Sulfate 4 Mg Inj IV 07/21/21 19:32 4 mg STAT ONE Administration Morphine Sulfate Confirm 07/21/21 19:46 Morphine Sulfate 4 Mg Inj Administered 07/21/21 19:47 Dose 4 mg .ROUTE .STK-MED ONE Morphine Sulfate 4 mg 07/21/21 20:42 07/21/21 20:53 Morphine Sulfate 4 Mg Inj IV 07/21/21 20:43 4 mg STAT ONE Administration Morphine Sulfate Confirm 07/21/21 20:52 Morphine Sulfate 4 Mg Inj Administered 07/21/21 20:53 Dose 4 mg .ROUTE .STK-MED ONE Ondansetron HCl 4 mg 07/21/21 19:31 07/21/21 19:48 Zofran 4 Mg/2 Ml Vial IV 07/21/21 19:32 4 mg STAT ONE Administration Ondansetron HCl Confirm 07/21/21 19:46 Zofran 4 Mg/2 Ml Vial Administered 07/21/21 19:47 Dose 4 mg .ROUTE .STK-MED ONE Lab/Rad Data: Laboratory Result Diagrams 07/21/21 19:31 07/21/21 19:31 Laboratory Results 07/21/21 07/21/21 07/21/21 Range/Units 21:57 19:44 19:31 WBC (4.0-10.5) K/mm3 RBC (4.1-5.6) M/mm3 Hgb (12.5-18.0) gm/dl Hct (42-50) % MCV (78-100) fl MCH (26-32) pg MCHC (32-36) g/dl RDW (11.5-14.0) % Plt Count (150-450) K/mm3 MPV (7.5-11.0) fl Gran % (36.0-66.0) % Eos # (Auto) (0-0.5) Absolute Lymphs (auto) (1.0-4.6) Absolute Monos (auto) (0.0-1.3) Lymphocytes % (24.0-44.0) % Monocytes % (0.0-12.0) % Eosinophils % (0.00-5.0) % Basophils % (0.0-0.4) % Absolute Granulocytes (1.4-6.9) Basophils # (0-0.4) Sodium 136 L (137-145) mmol/L Potassium 3.5 (3.5-5.1) mmol/L Chloride 101 (98-107) mmol/L Carbon Dioxide 23 (22-30) mmol/L Anion Gap 15.9 H (5-15) MEQ/L BUN 16 (9-20) mg/dL Creatinine 1.63 H (0.66-1.25) mg/dL Estimated GFR 50.1 ML/MIN Glucose 110 H (74-106) mg/dL Calcium 9.0 (8.4-10.2) mg/dL Total Bilirubin 2.00 H (0.2-1.3) mg/dL AST 31 (17-59) U/L ALT 18 (0-50) U/L Alkaline Phosphatase 58 (38-126) U/L Serum Total Protein 7.5 (6.3-8.2) g/dL Albumin 4.0 (3.5-5.0) g/dL Lipase 43 (23-300) U/L Urine Color RED (YELLOW) Urine Appearance SLIGHTLY CLOUDY (CLEAR) Urine pH 7.0 (5-6) Ur Specific Neon 1.015 (1.005-1.025) Urine Protein >=500 (Negative) Urine Ketones NEGATIVE (NEGATIVE) Urine Blood LARGE (0-5) Varun/ul Urine Nitrite NEGATIVE (NEGATIVE) Urine Bilirubin NEGATIVE (NEGATIVE) Urine Urobilinogen 4 (0-1) mg/dL Ur Leukocyte Esterase NEGATIVE (NEGATIVE) Urine WBC (Auto) 3-5 (0-5) /HPF Urine RBC (Auto) >101 (0-2) /HPF U Epithel Cells (Auto) RARE (FEW) /HPF Urine Bacteria (Auto) NONE (NEGATIVE) /HPF Urine Culture Reflexed NO (NO) Urine Glucose 50 (NEGATIVE) mg/dL SARS-CoV-2 RNA (LATOYA) Not Detected (Not Detected) Slides for Path Review 07/21/21 Range/Units 19:31 WBC 15.1 H (4.0-10.5) K/mm3 RBC 4.59 (4.1-5.6) M/mm3 Hgb 14.6 (12.5-18.0) gm/dl Hct 43.1 (42-50) % MCV 93.9 (78-100) fl MCH 31.8 (26-32) pg MCHC 33.9 (32-36) g/dl RDW 12.2 (11.5-14.0) % Plt Count 344 (150-450) K/mm3 MPV 9.3 (7.5-11.0) fl Gran % 78.0 H (36.0-66.0) % Eos # (Auto) 0.02 (0-0.5) Absolute Lymphs (auto) 1.76 (1.0-4.6) Absolute Monos (auto) 1.52 H (0.0-1.3) Lymphocytes % 11.7 L (24.0-44.0) % Monocytes % 10.1 (0.0-12.0) % Eosinophils % 0.1 (0.00-5.0) % Basophils % 0.1 (0.0-0.4) % Absolute Granulocytes 11.79 H (1.4-6.9) Basophils # 0.01 (0-0.4) Sodium (137-145) mmol/L Potassium (3.5-5.1) mmol/L Chloride (98-107) mmol/L Carbon Dioxide (22-30) mmol/L Anion Gap (5-15) MEQ/L BUN (9-20) mg/dL Creatinine (0.66-1.25) mg/dL Estimated GFR ML/MIN Glucose (74-106) mg/dL Calcium (8.4-10.2) mg/dL Total Bilirubin (0.2-1.3) mg/dL AST (17-59) U/L ALT (0-50) U/L Alkaline Phosphatase (38-126) U/L Serum Total Protein (6.3-8.2) g/dL Albumin (3.5-5.0) g/dL Lipase (23-300) U/L Urine Color (YELLOW) Urine Appearance (CLEAR) Urine pH (5-6) Ur Specific Neon (1.005-1.025) Urine Protein (Negative) Urine Ketones (NEGATIVE) Urine Blood (0-5) Varun/ul Urine Nitrite (NEGATIVE) Urine Bilirubin (NEGATIVE) Urine Urobilinogen (0-1) mg/dL Ur Leukocyte Esterase (NEGATIVE) Urine WBC (Auto) (0-5) /HPF Urine RBC (Auto) (0-2) /HPF U Epithel Cells (Auto) (FEW) /HPF Urine Bacteria (Auto) (NEGATIVE) /HPF Urine Culture Reflexed (NO) Urine Glucose (NEGATIVE) mg/dL SARS-CoV-2 RNA (LATOYA) (Not Detected) Slides for Path Review YES - Progress Progress: improved, pain not gone completely, re-examined Progress Note: 07/21/21 21:50 41 years old is evaluated for left flank pain with hematuria. Given fluid bolus and pain medications, on reevaluation feeling much better. No vomiting while in the ER. Work-up showed white count of 15 and creatinine of 1.63 and does have chronic kidney disease. I have obtained CT abdomen pelvis without contrast which showed no visible ureteral/renal calculus but does have some left perinephric fat stranding/fluid involving the left lower pole of left kidney ex tending to left periureteral region. This could be pyelitis, ureteritis/pyelonephritis are it could be from recent cyst rupture which is more likely. Patient reports having similar symptoms with previous cyst ruptures. Patient of temperature of 100.6 but no definitive UTI. I have recommended obs ervation admission but patient does not want to stay in the hospital at all. He is adamant that he does not need to stay and this has happened in the past and would like to take oral antibiotics and go home. I have given him a dose of Levaquin in here and will continue to go home. Discussed signs symptoms of worsening needing return to ER which he seems understanding. Patient would follow-up out patient with primary care and his healthcare associate in [place]. Counseled pt/family regarding: lab results, diagnosis, need for follow-up, rad results - Departure Departure Disposition: Home Clinical Impression: Pyelonephritis, Ruptured cyst of kidney Condition: Stable Critical Care Time: No Referrals: NILE MOJICA MD [ACTIVE STAFF] - (1-2 days for reevaluation.) Instructions: Kidney Infection, Polycystic Kidney Disease Additional Instructions: Drink plenty of fluids. Take Tylenol as needed. Do not take ibuprofen/Aleve or any other NSAIDs. Follow-up with your primary care for reevaluation. Return to ER for worsening pain, persistent fever/blood in the urine/vomiting etc. Prescriptions: Hydrocodone/APAP 5/325 [[place] 5/325 mg] 1 each PO Q6H PRN PRN #10 tablet MDD 4 PRN Reason: Pain Levofloxacin [Levaquin 500 MG Tablet] 500 mg PO DAILY #7 tablet
[2021-07-21] MEDS ORDERED: Zofran 4 MG/2 ML VIAL ONE (19:46)
[2021-07-21] MEDS ORDERED: MORPHINE SULFATE 4 MG INJ ONE ×2 (19:46→20:52)
[2021-07-21] MEDS ORDERED: Sodium Chloride 0.9% 1000 ML 1,000 ML ONE (19:46)
[2021-07-21] MEDS ORDERED: TYLENOL 325 MG ONE (19:46)
[2021-07-21 19:57] LABS: Absolute Neutrophil Ct (ANC) 11.79 (1.4-6.9); BASOPHIL % 0.1 % (0.0-0.4); Basophil (Absolute #) 0.01 (0-0.4); Eosinophil % 0.1 % (0.00-5.0); Eosinophil (Absolute #) 0.02 (0-0.5); Hematocrit 43.1 % (42-50); Hemoglobin 14.6 gm/dl (12.5-18.0); Lymphocyte (Absolute #) 1.76 (1.0-4.6); Lymphocytes % 11.7 % (24.0-44.0); Mean Cell Volume 93.9 fl (78-100); Mean Corpuscular Hemoglobin 31.8 pg (26-32); Mean Corpuscular Hgb Concent. 33.9 g/dl (32-36); Mean Platelet Volume 9.3 fl (7.5-11.0); Monocyte (Absolute #) 1.52 (0.0-1.3); Monocytes % 10.1 % (0.0-12.0); Platelet Count 344 K/mm3 (150-450); Red Blood Count 4.59 M/mm3 (4.1-5.6); Red Cell Distribution Width 12.2 % (11.5-14.0); White Blood Count 15.1 K/mm3 (4.0-10.5)
[2021-07-21 20:20] LABS: Appearance SLIGHTLY CLOUDY (CLEAR); Bilirubin NEGATIVE (NEGATIVE); Blood LARGE Ery/ul (0-5); Epithelial Cells RARE /HPF (FEW); Glucose 50 mg/dL (NEGATIVE); Ketones NEGATIVE (NEGATIVE); Leukocyte Esterase NEGATIVE (NEGATIVE); Nitrite NEGATIVE (NEGATIVE); Protein,Urine Dip >=500 (Negative); Specific Gravity 1.015 (1.005-1.025); Urobilinogen 4 mg/dL (0-1)
[2021-07-21 20:21] LABS: ANION GAP 15.9 MEQ/L (5-15); Creatinine 1 1.63 mg/dL (0.66-1.25); EST GLOMERULAR FILTRATION RATE 50.1 ML/MIN; Potassium 3.5 mmol/L (3.5-5.1); Total Protein 7.5 g/dL (6.3-8.2)
[2021-07-21 20:22] LABS: RBC >101 /HPF (0-2)
[2021-07-21 20:59] LABS: Slide Review 1 YES
[2021-07-21] MEDS ORDERED: Levofloxacin 250MG Tablet PO ONE (21:28)
[2021-07-21] MEDS ORDERED: Levofloxacin 250MG Tablet ONE (21:32)
[2021-07-21] MEDS ORDERED: NORCO 5/325 MG PO ONE (21:58)
[2021-07-21] MEDS ORDERED: NORCO 5/325 MG ONE (22:02)
[2021-07-21 22:06] VITALS: BP 115/75; PULSE 102
--- NOTE | 2021-07-22 08:59 | XRAY ---
Indication: Left flank pain. Hematuria. Multiple contiguous axial images obtained through the abdomen and pelvis without contrast. Comparison: October 28, 2018. Lung bases demonstrates minimal bilateral dependent atelectasis. Heart not enlarged. Noncontrasted stomach and bowel loops nonobstructed with normal appendix. Again grossly stable bilateral polycystic kidney disease with calcifications. Inferior left kidney demonstrates new mild perinephric stranding with tiny free fluid possibly inflammatory/infectious versus rupture/leaking cyst. Stable tiny hepatic cyst and a few splenic calcified granulomas. Remaining liver, gallbladder, pancreas, spleen, adrenal glands, kidneys, ureters, bladder, and aorta are unremarkable for noncontrast exam. Osseous structures intact. Stable small fatty left inguinal hernia. Impression: 1. New inferior left renal perinephric stranding with tiny free fluid. Findings possibly inflammatory/infectious versus rupture/leaking cyst. 2. Grossly stable bilateral polycystic kidney disease with calcifications, tiny hepatic cyst, small fatty left inguinal hernia, and old granulomatous disease. Comment: Preliminary interpretation made by [facility]. No critical discrepancy.
[2021-07-25 07:58] VITALS: O2SAT 98
== END 2021-07-21 22:11 | disposition home or self-care (01) ==
LOC: ED 19:05
DX: N12 Tubulo-interstitial nephritis, not specified as acute or chronic (principal); N28.1 Cyst of kidney, acquired
CPT/HCPCS: 36000; 36415; 74176; 80053; 81001; 83690; 85025; 96374; 96375; 96376; 99284; U0003; J2270; J2405; A9270-GY

== ENCOUNTER 2021-07-25 12:21 | Emergency (ER) | payer OTHER ==
[2021-07-25 12:52] VITALS: BP 128/93
[2021-07-25] MEDS ORDERED: MORPHINE SULFATE 4 MG INJ IV ONE (12:52)
[2021-07-25] MEDS ORDERED: Sodium Chloride 0.9% 1000 ML 1,000 ML IV STA (12:52)
[2021-07-25] MEDS ORDERED: Zofran 4 MG/2 ML VIAL IV ONE (12:52)
--- NOTE | 2021-07-25 12:56 | ERPHSYRPT ---
- History of Present Illness Time Seen by Provider: 07/25/21 12:23 Historian: patient Exam Limitations: no limitations Patient Subjective Stated Complaint: flank and abd pain Triage Nursing Assessment: pt to ED c/o L flank and abd pain. seen in ED thursday for same sx and did not wish to be admitted. has been taking medications at home from ER physician but does not feel like he has seen much improvement. still c/o hematuria but states that seems to be slightly better. rates 10/10 pain now. 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 Denies any fever chills. Does have nausea but no vomiting. Timing/Duration: day(s) (5), constant, worse Activities at Onset: rest Quality: sharpness Abdominal Pain Onset Location: flank Pain Radiation: groin Severity of Pain-Max: severe Severity of Pain-Current: severe Modifying Factors: Worsens With: movement, palpation, position Associated Symptoms: back, nausea Previous symptoms: same symptoms as today Allergies/Adverse Reactions: Penicillins Allergy (Severe, Verified 07/25/21 12:52) Rash diphenhydramine HCl [From Benadryl] Allergy (Verified 07/25/21 12:52) haloperidol [From Haldol] Allergy (Verified 07/25/21 12:52) ketorolac tromethamine [From Toradol] Allergy (Verified 07/25/21 12:52) Hx Tetanus, Diphtheria Vaccination/Date Given: Yes Hx Influenza Vaccination/Date Given: Yes Hx Pneumococcal Vaccination/Date Given: No Immunizations Up to Date: Yes Travel Risk - International Travel Have you traveled outside of the country in past 3 weeks: No - Coronavirus Screening Are you exhibiting any of the following symptoms?: No Close contact with a COVID-19 positive Pt in past 14-21 Days: No - Vaccine Status Have you recieved a Covid-19 vaccination: No - Review of Systems Constitutional: Fatigue, Weakness Eyes: No Symptoms Ears, Nose, & Throat: No Symptoms Respiratory: No Symptoms Cardiac: No Symptoms Abdominal/Gastrointestinal: Abdominal Pain, Nausea Genitourinary Symptoms: Hematuria, Flank Pain Musculoskeletal: No Symptoms Skin: No Symptoms Neurological: No Symptoms Psychological: No Symptoms Endocrine: No Symptoms Hematologic/Lymphatic: No Symptoms Immunological/Allergic: No Symptoms - Past Medical History Pertinent Past Medical History: Yes Neurological History: No Pertinent History ENT History: No Pertinent History Cardiac History: No Pertinent History Respiratory History: No Pertinent History Endocrine Medical History: No Pertinent History Musculoskeletal History: No Pertinent History GI Medical History: No Pertinent History, Other History: Other Psycho-Social History: No Pertinent History Male Reproductive Disorders: No Pertinent History Other Medical History: Polycystic kidney disease, kidney stones - Past Surgical History Past Surgical History: No Neuro Surgical History: No Pertinent History Cardiac: No Pertinent History Respiratory: No Pertinent History Gastrointestinal: No Pertinent History Genitourinary: No Pertinent History Musculoskeletal: No Pertinent History Male Surgical History: No Pertinent History - Social History Smoking Status: Current every day smoker How long have you smoked: years Exposure to second hand smoke: Yes Drug Use: none Patient Lives Alone: No Significant Family History: no pertinent family hx - Nursing Vital Signs Nursing Vital Signs: Initial Vital Signs Temperature 98.4 F 07/25/21 12:47 Pulse Rate 100 H 07/25/21 12:47 Respiratory Rate 18 07/25/21 12:47 Blood Pressure 128/93 07/25/21 12:47 O2 Sat by Pulse Oximetry 95 07/25/21 12:47 Pain Scale Pain Intensity 5 - Physical Exam General Appearance: no apparent distress, alert Eye Exam: PERRL/EOMI, eyes nml inspection Ears, Nose, Throat Exam: normal ENT inspection, pharynx normal Neck Exam: normal inspection, non-tender, supple, full range of motion Respiratory Exam: normal breath sounds, lungs clear Cardiovascular Exam: regular rate/rhythm, normal heart sounds Gastrointestinal/Abdomen Exam: soft, normal bowel sounds, tenderness (Left flank with some guarding and positive left CVA tenderness) Male Genitalia Exam: normal genitalia, No hernia, No testicular tenderness Back Exam: normal inspection, normal range of motion Extremity Exam: normal inspection, normal range of motion, pelvis stable Neurologic Exam: alert, oriented x 3, cooperative, bench examiner II-XII nml as tested Skin Exam: normal color SpO2 Interpretation: normal SpO2: 95 O2 Delivery: Room Air Ordered Tests: Active Orders 24 hr Category Date Time Status IV Insertion STAT Care 07/25/21 12:52 Completed NPO (ED) STAT Care 07/25/21 12:52 Completed ABDOMEN AND PELVIS W/0 CONTRAS [CT] Stat Exams 07/25/21 12:52 Completed CBC W DIFF Stat Lab 07/25/21 13:20 Completed CMP Stat Lab 07/25/21 13:20 Completed Manual Differential NC Stat Lab 07/25/21 13:20 Completed Medication Summary Discontinued Medications Generic Name Dose Route Start Last Admin Trade Name Freq PRN Reason Stop Dose Admin Sodium Chloride 1,000 mls @ 999 mls/hr 07/25/21 12:52 07/25/21 15:21 Sodium Chloride 0.9% 1000 Ml IV 07/25/21 13:52 Infused .Q1H1M STA Infusion Sodium Chloride Confirm 07/25/21 14:12 Sodium Chloride 0.9% 1000 Ml Administered 07/25/21 14:13 Dose 1,000 mls @ ud .ROUTE .STK-MED ONE Morphine Sulfate 4 mg 07/25/21 12:52 07/25/21 14:16 Morphine Sulfate 4 Mg Inj IV 07/25/21 12:53 4 mg STAT ONE Administration Morphine Sulfate Confirm 07/25/21 14:12 Morphine Sulfate 4 Mg Inj Administered 07/25/21 14:13 Dose 4 mg .ROUTE .STK-MED ONE Ondansetron HCl 4 mg 07/25/21 12:52 07/25/21 14:16 Zofran 4 Mg/2 Ml Vial IV 07/25/21 12:53 4 mg STAT ONE Administration Ondansetron HCl Confirm 07/25/21 14:12 Zofran 4 Mg/2 Ml Vial Administered 07/25/21 14:13 Dose 4 mg .ROUTE .STK-MED ONE Lab/Rad Data: Laboratory Result Diagrams 07/25/21 13:20 07/25/21 13:20 Laboratory Results 07/25/21 07/25/21 Range/Units 13:20 13:20 WBC 9.7 (4.0-10.5) K/mm3 RBC 4.30 (4.1-5.6) M/mm3 Hgb 13.5 (12.5-18.0) gm/dl Hct 40.4 L (42-50) % MCV 94.0 (78-100) fl MCH 31.4 (26-32) pg MCHC 33.4 (32-36) g/dl RDW 12.2 (11.5-14.0) % Plt Count 404 (150-450) K/mm3 MPV 9.2 (7.5-11.0) fl Segmented Neutrophils 77 H (36.-66.) % Lymphocytes (Manual) 19 L (24-44) % Monocytes (Manual) 3 (0.0-12.0) % Eosinophils (Manual) 1 (0.00-3.0) % Platelet Estimate NORMAL (NORMAL) RBC Morphology NORMAL Sodium 138 (137-145) mmol/L Potassium 3.5 (3.5-5.1) mmol/L Chloride 106 (98-107) mmol/L Carbon Dioxide 21 L (22-30) mmol/L Anion Gap 14.0 (5-15) MEQ/L BUN 17 (9-20) mg/dL Creatinine 1.34 H (0.66-1.25) mg/dL Estimated GFR > 60.0 ML/MIN Glucose 85 (74-106) mg/dL Calcium 9.3 (8.4-10.2) mg/dL Total Bilirubin 1.00 (0.2-1.3) mg/dL AST 33 (17-59) U/L ALT 49 (0-50) U/L Alkaline Phosphatase 83 (38-126) U/L Serum Total Protein 7.2 (6.3-8.2) g/dL Albumin 3.8 (3.5-5.0) g/dL - Progress Progress: improved, pain not gone completely Progress Note: 07/25/21 14:58 41 years old with APKD with possible ruptured cyst few days ago is evaluated again in the ER for the left flank pain. Is given fluids and pain medication, on reevaluation feeling better. Normal white count, improved chemistries and also the white count previously was 15. Repeated CT did not show any acute finding but stable when compared with previous done few days ago. Is continue with antibiotics. Recommended outpatient follow-up with Dr. Hodge. Discussed with Dr. Hodge and patient will be seen tomorrow. Counseled pt/family regarding: lab results, diagnosis, need for follow-up, rad results - Departure Departure Disposition: Home Clinical Impression: Ruptured cyst of kidney, Renal colic on left side Condition: Stable Critical Care Time: No Referrals: SASCHA HODGE MD [ACTIVE STAFF] - (Tomorrow for reevaluation as scheduled) Instructions: Acute Abdomen (Belly Pain), Adult (DC) Additional Instructions: Drink plenty of fluids. Take Tylenol as needed. Continue with antibiotics. Follow-up with primary care for reevaluation as scheduled tomorrow. Return to ER for intractable pain, worsening hematuria/fever chills etc.
--- NOTE | 2021-07-25 13:30 | XRAY ---
Indication: Left flank pain. Multiple contiguous axial images obtained through the abdomen and pelvis without contrast. Comparison: July 21, 2021. Lung bases again demonstrates minimal dependent atelectasis. Heart is not enlarged. Noncontrasted stomach and bowel loops remain nonobstructed with normal appendix. Grossly stable bilateral polycystic kidney disease with calcifications. Inferior left kidney demonstrates stable mild perinephric stranding with tiny free fluid again inflammatory/infectious versus rupture/leaking cyst. Stable tiny hepatic cyst and splenic calcified granulomas. Remaining liver, though bladder, pancreas, spleen, adrenal glands, kidneys, ureters, bladder, and aorta are unremarkable for noncontrast exam. Impression: 1. Stable inferior left renal perinephric stranding with tiny free fluid again either inflammatory/infectious versus rupture/leaking cyst. 2. Grossly stable bilateral polycystic disease with calcifications, tiny hepatic cyst, and old granulomatous disease.
[2021-07-25 13:38] LABS: Hematocrit 40.4 % (42-50); Hemoglobin 13.5 gm/dl (12.5-18.0); Mean Corpuscular Hemoglobin 31.4 pg (26-32); Mean Corpuscular Hgb Concent. 33.4 g/dl (32-36); Mean Platelet Volume 9.2 fl (7.5-11.0); Platelet Count 404 K/mm3 (150-450); Red Cell Distribution Width 12.2 % (11.5-14.0); White Blood Count 9.7 K/mm3 (4.0-10.5)
[2021-07-25 13:42] LABS: ALBUMIN 3.8 g/dL (3.5-5.0); ALKALINE PHOSPHATASE 83 U/L (38-126); BLOOD UREA NITROGEN 17 mg/dL (9-20); CHLORIDE 106 mmol/L (98-107); Calcium 9.3 mg/dL (8.4-10.2); Carbon Dioxide 21 mmol/L (22-30); Creatinine 1 1.34 mg/dL (0.66-1.25); EST GLOMERULAR FILTRATION RATE > 60.0 ML/MIN; Glucose 85 mg/dL (74-106); Potassium 3.5 mmol/L (3.5-5.1); SGOT/AST 33 U/L (17-59); SGPT/ALT 49 U/L (0-50); SODIUM 138 mmol/L (137-145); Total Protein 7.2 g/dL (6.3-8.2)
[2021-07-25] MEDS ORDERED: MORPHINE SULFATE 4 MG INJ ONE (14:12)
[2021-07-25] MEDS ORDERED: Zofran 4 MG/2 ML VIAL ONE (14:12)
[2021-07-25] MEDS ORDERED: Sodium Chloride 0.9% 1000 ML 1,000 ML ONE (14:12)
[2021-07-25 15:07] VITALS: PULSE 88
[2021-07-25 15:30] LABS: Eosinophil 1 % (0.00-3.0); Lymphocytes 19 % (24-44); Monocyte 3 % (0.0-12.0); Neutrophils 77 % (36.-66.); Platelet Estimate NORMAL (NORMAL); Total Cells Counted 100
[2021-07-25 16:52] VITALS: O2SAT 95
== END 2021-07-25 15:26 | disposition home or self-care (01) ==
LOC: ED 12:21
DX: N28.1 Cyst of kidney, acquired (principal); N23 Unspecified renal colic
CPT/HCPCS: 36000; 36415; 74176; 80053; 85025; 96360; 96374; 96375; 99284; J2270; J2405

== ENCOUNTER 2022-02-06 08:18 | Emergency (ER) | payer OTHER ==
[2022-02-06] MEDS ORDERED: MORPHINE SULFATE 4 MG INJ IM ONE (09:03)
[2022-02-06] MEDS ORDERED: MORPHINE SULFATE 4 MG INJ ONE (09:12)
--- NOTE | 2022-02-06 09:13 | ERPHSYRPT ---
- History of Present Illness Time Seen by Provider: 02/06/22 09:02 Source: patient Exam Limitations: no limitations Patient Subjective Stated Complaint: PT TO ER WITH COMPLAINTS OF RIGHT FOOT PAIN. PT STATES HE WAS AT WORK LAST NIGHT AND GOT A CORD WRAPPED AROUND HIS ANKLE AND BENT IT SIDEWAYS. PT STATES HE IS UNABLE TO PUT ANY WEIGHT ON IT WITHOUT PAIN. PT STATES HE TAKES 4 10MG NORCOS A DAY NORMALLY AND THOSE ARE HELPING THE PAIN. Triage Nursing Assessment: PT A&OX4. AMBULATORY WITH LIMP. PT SKIN PWD. Physician History: 41 years old male with history of polycystic kidney disease presented to the ER with chief complaint of right foot and ankle pain since yesterday after at work he accidentally got wrapped with electric cord and twisted his ankle inward. Applied ice and took his routine pain medication which helped but since morning pain is getting worse and having difficulty weightbearing. No obvious swelling. Method of Injury: twisted Occurred: yesterday Quality: sharpness Severity of Pain-Max: moderate Severity of Pain-Current: moderate Lower Extremities Pain: foot: right, ankle: right Modifying Factors: Improves With: immobilization, pain medication. Worsens With: movement Associated Symptoms: unable to bear weight, No snapping sensation, No popping sensation Allergies/Adverse Reactions: Penicillins Allergy (Severe, Verified 02/06/22 08:36) Rash diphenhydramine HCl [From Benadryl] Allergy (Verified 02/06/22 08:36) haloperidol [From Haldol] Allergy (Verified 02/06/22 08:36) ketorolac tromethamine [From Toradol] Allergy (Verified 02/06/22 08:36) Hx Tetanus, Diphtheria Vaccination/Date Given: Yes Hx Influenza Vaccination/Date Given: Yes Hx Pneumococcal Vaccination/Date Given: No Travel Risk - International Travel Have you traveled outside of the country in past 3 weeks: No - Coronavirus Screening Are you exhibiting any of the following symptoms?: No Close contact with a COVID-19 positive Pt in past 14-21 Days: No - Vaccine Status Have you recieved a Covid-19 vaccination: No - Review of Systems Constitutional: No Symptoms Eyes: No Symptoms Respiratory: No Symptoms Cardiac: No Symptoms Genitourinary Symptoms: No Symptoms Musculoskeletal: Injury, Joint Pain Skin: No Symptoms Neurological: No Symptoms Endocrine: No Symptoms Hematologic/Lymphatic: No Symptoms - Past Medical History Pertinent Past Medical History: Yes Neurological History: No Pertinent History ENT History: No Pertinent History Cardiac History: No Pertinent History Respiratory History: No Pertinent History Endocrine Medical History: No Pertinent History Musculoskeletal History: No Pertinent History GI Medical History: No Pertinent History, Other History: Other Psycho-Social History: No Pertinent History Male Reproductive Disorders: No Pertinent History Other Medical History: Polycystic kidney disease, kidney stones - Past Surgical History Past Surgical History: No Neuro Surgical History: No Pertinent History Cardiac: No Pertinent History Respiratory: No Pertinent History Gastrointestinal: No Pertinent History Genitourinary: No Pertinent History Musculoskeletal: No Pertinent History Male Surgical History: No Pertinent History - Social History Smoking Status: Current every day smoker How long have you smoked: years Exposure to second hand smoke: Yes Drug Use: none Patient Lives Alone: No Significant Family History: no pertinent family hx - Nursing Vital Signs Nursing Vital Signs: Initial Vital Signs Temperature 98.0 F 02/06/22 08:27 Pulse Rate 81 02/06/22 08:27 Respiratory Rate 16 02/06/22 08:27 Blood Pressure 133/91 02/06/22 08:27 O2 Sat by Pulse Oximetry 97 02/06/22 08:27 Pain Scale Pain Intensity 7 - Physical Exam General Appearance: no apparent distress Neck Exam: normal inspection, full range of motion Cardiovascular/Respiratory Exam: normal breath sounds, regular rate/rhythm Knees Exam: bilateral knee: non-tender, normal inspection, normal range of motion, no evidence of injury Ankle Exam: right ankle: bone tenderness (Bilateral malleoli), limited range of motion, pain, soft tissue tenderness, left ankle: non-tender, normal range of motion, bilateral ankle: normal inspection Foot Exam: right foot: bone tenderness (Base of fifth metatarsal), limited range of motion, pain, soft tissue tenderness Neuro/Tendon Exam: normal sensation, normal tendon functions Mental Status Exam: alert, oriented x 3 Skin Exam: normal color SpO2 Interpretation: normal SpO2: 97 O2 Delivery: Room Air Ordered Tests: Active Orders 24 hr Category Date Time Status ANKLE (3 VIEWS) Stat Exams 02/06/22 Completed FOOT (MINIMUM 3 VIEWS) Stat Exams 02/06/22 Completed Medication Summary Discontinued Medications Generic Name Dose Route Start Last Admin Trade Name Freq PRN Reason Stop Dose Admin Morphine Sulfate 4 mg 02/06/22 09:03 02/06/22 09:13 Morphine Sulfate 4 Mg/Ml Injection IM 02/06/22 09:04 4 mg STAT ONE Administration Morphine Sulfate Confirm 02/06/22 09:12 Morphine Sulfate 4 Mg/Ml Injection Administered 02/06/22 09:13 Dose 4 mg .ROUTE .STK-MED ONE - Progress Progress: improved, pain not gone completely, re-examined Progress Note: 02/06/22 10:05 X-rays negative for fracture dislocation in foot and ankle. Recommended continue with pain medication. Aircast applied, weightbearing as tolerated and outpatient podiatry follow-up. Discussed signs symptoms to ER which he seems understanding. Counseled pt/family regarding: diagnosis, need for follow-up, rad results - Departure Departure Disposition: Home Clinical Impression: Ankle sprain Condition: Stable Critical Care Time: No Referrals: NIKI MYERS MD [Primary Care Provider] - Follow up/PCP as directed ZAK ACEVES DPM [ACTIVE STAFF] - Follow up/PCP as directed (Call tomorrow for appointment for reevaluation) Instructions: Ankle Sprain (DC), Foot Sprain (DC) Additional Instructions: Take pain medications which you have at home commended. Weightbearing as tolerated. Apply intermittent ice., Elevation. Follow-up with podiatry for reevaluation.
--- NOTE | 2022-02-06 10:02 | XRAY ---
Indication: Pain following injury. Fracture. Comparison: None 3 view right ankle demonstrates tiny plantar heel spur. No other bony, articular, or soft tissue abnormalities.
--- NOTE | 2022-02-06 10:03 | XRAY ---
Indication: Pain following injury. Fracture. Comparison: None 3 nonweightbearing views right foot demonstrates tiny plantar heel spur. No other bony, articular, or soft tissue abnormalities.
[2022-02-06 10:31] VITALS: BP 138/89; PULSE 75
[2022-02-06 21:09] VITALS: O2SAT 97
== END 2022-02-06 10:41 | disposition home or self-care (01) ==
LOC: ED 08:18
DX: S93.401A Sprain of unspecified ligament of right ankle, initial encounter (principal); X50.1XXA Overexertion from prolonged static or awkward postures, initial encounter; Y99.0 Civilian activity done for income or pay; Q61.3 Polycystic kidney, unspecified; M25.571 Pain in right ankle and joints of right foot; Z79.891 Long term (current) use of opiate analgesic; Z72.0 Tobacco use
CPT/HCPCS: 73610; 73630; 96372; 99284; 99291; J2270; L1830